=== PATIENT | male | born 1995 | race Caucasian/White ===

== ENCOUNTER 2019-12-08 10:04 | Emergency (ER) | payer OTHER, SELFPAY ==
--- NOTE | ~2019-12-08 | CT_ITS ---
EXAMINATION: CT abdomen pelvis w con INDICATION: Lower abdominal pain, nausea, constipation TECHNIQUE: Computed tomographic images of the abdomen and pelvis were obtained after the administrati on of 100 cc of Omnipaque 350 intravenous contrast. The dose-length product (DLP) was 1433.06 mGy-cm. Automated exposure control and iterative reconstruction technique were employed. COMPARISON: 12/08/2019 FINDINGS: The lung bases are clear. The heart size is normal. The liver, spleen, pancreas, gallbladde r, and adrenal glands are normal. The kidneys are unremarkable. No pathologically enlarged abdominal or pelvic lymph nodes are identified. There is no free intraperitoneal gas or evidence of bowel obstr uction. The appendix is normal. IMPRESSION: 1. No CT correlate for the patient's symptoms. Reviewed, dictated and finalized at location A.
[2019-12-08 10:15] VITALS: BP 156/89; PULSE 71; RESP 17; TEMP 36.6; O2SAT 100
[2019-12-08 10:43] LABS: Basophils Percent Auto 0.8 % (0.2-1.2); Eosinophils Absolute Auto 0.1 K/mm3 (0-0.3); Eosinophils Percent Auto 1.6 % (0-4.4); Hematocrit 47.4 % (42.0-52.0); Hemoglobin 16.3 g/dL (14.0-18.0); Immature Granulocyte Absolute 0.01 K/mm3 (0.00-0.031); Immature Granulocyte Percent A 0.2 % (0-0.5); Lymphocytes Absolute Auto 1.88 K/mm3 (0.9-3.2); Lymphocytes Percent Auto 37.6 % (18.3-44.2); Mean Corpuscular HGB Conc 34.4 g/dl (32-36); Mean Corpuscular Hemoglobin 29.6 pg (26-34); Mean Platelet Volume 9.8 fl (7.4-10.4); Monocytes Absolute Auto 0.4 K/mm3 (0.1-0.6); Monocytes Percent Auto 7.2 % (2.6-8.5); Neutrophils Absolute Auto 2.6 K/mm3 (1.3-6.7); Neutrophils Percent Auto 52.6 % (45.5-73.1); Platelet Count Result 331 k/mm3 (150-375); Red Blood Count 5.51 M/mm3 (4.6-6.20); Red Cell Distribution Width 12.3 % (11.5-14.5)
[2019-12-08 10:47] LABS: Alanine Aminotransferase 32 U/L (4-50); Albumin Level 4.9 g/dL (3.5-5.1); Alkaline Phosphatase 83 U/L (38-126); Aspartate Amino Transferase 31 U/L (17-59); Bilirubin,Total 0.6 mg/dL (0.2-1.3); Blood Urea Nitrogen 13 mg/dL (9-20); Calcium 9.3 mg/dL (8.4-10.2); Carbon Dioxide 26 mmol/L (22-30); Chloride 102 mmol/L (98-107); Estimated CRCL calculation 148 ml/min; Estimated Glomerular Filt Rate > 60; Glucose 98 mg/dL (75-110); Lipase 49 U/L (23-300); Potassium 3.9 mmol/L (3.4-5.0); Sodium 138 mmol/L (137-145)
[2019-12-08 11:11] VITALS: BP 128/70; PULSE 71; RESP 14; O2SAT 98
--- NOTE | 2019-12-08 11:22 | ED.ABDPAIN ---
HPI - Abdominal Pain General Chief Complaint: Abdominal Pain <Jayson Schmitt PA-C - Last Filed: 12/08/19 12:39> Stated Complaint: abd pain <JORGE Cotter Last Filed: 12/08/19 12:39> Time Seen by Provider: 12/08/19 10:14 <JORGE Cotter Last Filed: 12/08/19 12:39> Source: patient <Jayson Schmitt PA-C - Last Filed: 12/08/19 12:39> Mode of arrival: ambulatory <JORGE Cotter Last Filed: 12/08/19 12:39> Limitations: no limitations <JORGE Cotter Last Filed: 12/08/19 12:39> History of Present Illness HPI narrative: Patient is a 24-year-old male who presents with several days duration of generalized abdominal pain is a moderate aching pain throughout the abdomen patient has not taken anything for his symptoms presents per private vehicle denies vomiting diarrhea hematuria melena or urinary symptoms patient on arrival to emergency department is in the room in no distress pain is worse with activity and movement <Jayson Schmitt PA-C - Last Filed: 12/08/19 12:39> Related Data Home Medications: Home Medications Medication Instructions Recorded Confirmed hyoscyamine sulfate mg PO 12/08/19 <JORGE Cotter Last Filed: 12/08/19 12:39> Allergies/Adverse Reactions: Allergies Allergy/AdvReac Type Severity Reaction Status Date / Time No Known Allergies Allergy Verified 12/08/19 10:23 <Jayson Schmitt PA-C - Last Filed: 12/08/19 12:39> Review of Systems Review of Systems: All systems reviewed & are unremarkable except as noted in HPI and below <Jayson Schmitt PA-C - Last Filed: 12/08/19 12:39> PMFSH Social History Social History: Social History Gender identity (if verbalized by the patient): Male <JORGE Cotter Last Filed: 12/08/19 12:39> Exam Narrative: Exam Narrative: GENERAL: Well-appearing, well-nourished, and in no acute distress. HEAD: Normocephalic, atraumatic. EYES: PERRLA and EOMI. ENT: Nares clear, no rhinorrhea or epistaxis. Mucous membranes moist. Oropharynx without tonsillar hypertrophy exudate or other lesions. Bilateral TMs pearly valdez nonbulging NECK: Supple. No adenopathy or masses. No carotid bruits or JVD CHEST: Clear to auscultation. No respiratory distress. No wheezes rales or rhonchi HEART: Regular rate and rhythm. No murmur heard. Normal peripheral pulses. ABDOMEN: Soft, generalized tenderness with voluntary guarding, nondistended EXTREMITIES: Normal range of motion. No edema. SKIN: Warm, dry, no rash. NEURO: No focal deficits. Alert and oriented x3. Neurovascularly intact. Capillary refill less than 2 seconds PSYCH: Normal mood and affect. <JORGE Cotter Last Filed: 12/08/19 12:39> Course Course Emergency Course: Patient in the room in no distress felt appropriate for outpatient reevaluation pain could be secondary to his IBS <JORGE Cotter Last Filed: 12/08/19 12:39> Vital Signs Vital signs: Vital Signs Temperature 97.9 F 12/08/19 10:15 Pulse Rate 71 12/08/19 10:15 Respiratory Rate 17 12/08/19 10:15 Blood Pressure 156/89 H 12/08/19 10:15 Pulse Oximetry 100 12/08/19 10:15 Temperature 98 F 12/08/19 12:51 Pulse Rate 57 L 12/08/19 12:51 Respiratory Rate 16 12/08/19 12:51 Blood Pressure 124/67 12/08/19 12:51 Pulse Oximetry 100 12/08/19 12:51 <JORGE Cotter Last Filed: 12/08/19 12:39> Vital Signs Temperature 97.9 F 12/08/19 10:15 Pulse Rate 71 12/08/19 10:15 Respiratory Rate 17 12/08/19 10:15 Blood Pressure 156/89 H 12/08/19 10:15 Pulse Oximetry 100 12/08/19 10:15 Temperature 98 F 12/08/19 12:51 Pulse Rate 57 L 12/08/19 12:51 Respiratory Rate 16 12/08/19 12:51 Blood Pressure 124/67 12/08/19 12:51 Pulse Oximetry 100 12/08/19 12:51 <Diandra Valdivia MD - Last Filed: 12/07
--- NOTE | 2019-12-08 11:23 | PC.NURSE ---
Pt to CT scan via stretcher.
[2019-12-08 11:24] LABS: Add Urine Microscopic? YES; Appearance Urine Clear (Clear); Bilirubin Urine Negative (Negative); Blood Urine Negative (Negative); Color Urine Straw (Yellow); Glucose Urine UA Negative (Negative); Ketones Urine 1+ mg/dL (Negative); Leukocyte Esterase Ur Negative LEU/UL (Negative); Nitrate Urine Negative (Negative); Protein Urine Negative (Negative); Specific Grav Ur 1.013 (1.001-1.035); Urobilinogen Urine Negative mg/dL (<2.0); WBC Urine 0-3 /hpf
[2019-12-08] MEDS: FAMOTIDINE 20 MG/2 ML VIAL IV PUSH (11:57)
[2019-12-08] MEDS: SODIUM CHLORIDE 0.9% IV 1,000 ML 999 ML IV CONT (11:57)
[2019-12-08 12:51] VITALS: BP 124/67; PULSE 57; RESP 16; TEMP 36.6; O2SAT 100
== END 2019-12-08 12:52 | disposition home or self-care (01) ==
PROVIDERS: Emergency Provider Emergency Medicine; PCP Family Medicine
DX: R10.84 Generalized abdominal pain (principal)
CPT/HCPCS: 36415; 74177; 80053; 81001; 83690; 85025; 96365; 96375; 99284; J0131; J7030; Q9967

== ENCOUNTER 2020-07-23 09:00 | Emergency (ER) | payer OTHER, SELFPAY ==
[2020-07-23] VITALS (7 sets, daily range): BP systolic 116–150; BP diastolic 72–101; PULSE 79–95; RESP 13–18; TEMP 37; O2SAT 96–99
--- NOTE | ~2020-07-23 | XR_ITS ---
EXAMINATION: XR chest 2V EXAM DATE: 07/23/2020 09:33 INDICATION: Left-sided chest pain for 4 days. TECHNIQUE: Frontal and lateral projections of the chest obtained and reviewed. Comparison is made to prior examination from 05/02/2018. FINDINGS: The lungs are clear. There are no pleural effusions. The cardiomediastinal silhouette is within normal limits. There is no pneumothorax suspected. The bones and soft tissues are unremarkab le. IMPRESSION: Unremarkable chest x-ray exam. Reviewed, dictated and finalized at location A. E [employer]
--- NOTE | 2020-07-23 09:11 | ECG_ITS ---
Measurements Intervals [place] Rate: 87 P: 38 ME: 152 QRS: 36 QRSD: 97 T: 62 QT: 349 QTc: 422 Interpretive Statements SINUS RHYTHM NORMAL ECG Electronically Signed On 07-23-2020 11:28:19 MACHINE SET UP TECHNICIAN by Dewayne Copeland D.O.
[2020-07-23] MEDS: ASPIRIN 81 MG CHEWABLE TABLET 324 MG PO (09:22)
[2020-07-23 09:25] LABS: Basophils Absolute Auto 0.1 K/mm3 (0.0-0.1); Basophils Percent Auto 0.7 % (0.2-1.2); Eosinophils Absolute Auto 0.1 K/mm3 (0-0.3); Eosinophils Percent Auto 1.6 % (0-4.4); Immature Granulocyte Absolute 0.02 K/mm3 (0.00-0.031); Immature Granulocyte Percent A 0.3 % (0-0.5); Lymphocytes Absolute Auto 2.58 K/mm3 (0.9-3.2); Lymphocytes Percent Auto 38.4 % (18.3-44.2); Mean Corpuscular HGB Conc 34.7 g/dl (32-36); Mean Corpuscular Volume 86.4 fl (80-100); Mean Platelet Volume 9.4 fl (7.4-10.4); Monocytes Absolute Auto 0.5 K/mm3 (0.1-0.6); Monocytes Percent Auto 6.8 % (2.6-8.5); Neutrophils Absolute Auto 3.5 K/mm3 (1.3-6.7); Neutrophils Percent Auto 52.2 % (45.5-73.1); Platelet Count Result 347 k/mm3 (150-375); Red Blood Count 5.67 M/mm3 (4.6-6.20); Red Cell Distribution Width 12.5 % (11.5-14.5); White Blood Count 6.7 K/mm3 (4.5-10.0)
[2020-07-23 09:34] LABS: Prothrombin Time 13.3 Seconds (11.1-14.7)
[2020-07-23 09:35] LABS: Partial Thromboplastin Time 35.4 SECONDS (22.3-36.8)
[2020-07-23 09:36] LABS: Anion Gap 7 mmol/L (8-16); Blood Urea Nitrogen 11 mg/dL (9-20); Carbon Dioxide 33 mmol/L (22-30); Chloride 99 mmol/L (98-107); Estimated CRCL calculation 139 ml/min; Estimated Glomerular Filt Rate > 60; Glucose 101 mg/dL (75-110); Potassium 3.7 mmol/L (3.4-5.0); Sodium 139 mmol/L (137-145)
[2020-07-23 09:48] LABS: Troponin I < 0.012 ng/mL (0.000-0.034)
--- NOTE | 2020-07-23 10:22 | PC.NURSE ---
Called lab, Shaina, added on [phone]
[2020-07-23] MEDS: KETOROLAC 30 MG/ML VIAL (*BKC) IV PUSH (10:33)
[2020-07-23 10:39] LABS: D Dimer 0.27 ug/mL (<0.48)
--- NOTE | 2020-07-23 10:45 | ED.CHESTPAIN ---
HPI - Chest Pain General Chief Complaint: Chest Pain Stated Complaint: lt chest pain Time Seen by Provider: 07/23/20 09:54 Source: patient Mode of arrival: ambulatory Limitations: no limitations History of Present Illness HPI narrative: This patient is a 24 year old male who presents for evaluation of left chest pain. Patient states his pain started 4 days ago. He describes pain has intermittent tightness. He denies any exacerbating or alleviating factors. He has not taken anything for pain. He denies associated cough, shortness of breath, fever, chills, vomiting or dizziness. HE denies signs of dVT. He denies history PE or DVt. complaint: chest pain Onset (ago): day(s) (4) Timing of current episode: episodic Related Data Home Medications Medication Instructions Recorded Confirmed amitriptyline 25 mg PO HS 07/23/20 Allergies Allergy/AdvReac Type Severity Reaction Status Date / Time No Known Allergies Allergy Verified 07/23/20 09:15 Review of Systems Review of Systems: All systems reviewed & are unremarkable except as noted in HPI and below PMFSH Past Medical History Medical History (Updated 07/23/20 @ 13:11 by Kelle Camilo MD) Patient denies medical problems Surgical History Surgical History (Updated 07/23/20 @ 10:47 by Kelle Camilo MD) No pertinent past surgical history Social History Social History (Updated 07/23/20 @ 10:47 by Kelle Camilo MD) Tobacco type: e-cigarettes/vaping Gender identity (if verbalized by the patient): Male Exam Narrative: Exam Narrative: GENERAL: Well-appearing, well-nourished, and in no acute distress. HEAD: Normocephalic, atraumatic EYES: PERRLA and EOMI, conjunctiva clear without discharge THROAT:Mucous membranes moist, Oropharynx normal without erythema, exudate, peritonsillar swelling or fluctuance NECK: Supple, without lymphadenopathy or mass RESPIRATORY: No respiratory distress, Airway patent, Respirations non-labored, Clear to auscultation without rales, rhonchi or wheeze HEART: Regular rate and rhythm. No murmur heard. Normal peripheral pulses. ABDOMEN: Soft, nontender, nondistended, normal active bowel sounds. No masses. No rebound or guarding, No organomegaly. EXTREMITIES: No edema, normal strength with full range of motion. SKIN: Warm, dry, normal color without rash NEURO: Alert and oriented x3. CN 2-12 grossly intact. No focal deficits. PSYCH: Normal mood and affect. Course Reevaluation(s) Date: 07/23/20 Time: 13:08 Consultations Consultation #1: I Discussed case with Dr. Copeland patient with heart score of 2 . He is pain free now after nitro. He states patient can be discharged and follow up next week for stress test. patient is not exertional Date: 07/23/20 Time: 13:08 Vital Signs Vital signs: Vital Signs Temperature 98.6 F 07/23/20 09:09 Pulse Rate 95 07/23/20 09:09 Respiratory Rate 16 07/23/20 09:09 Blood Pressure 150/101 H 07/23/20 09:09 Pulse Oximetry 99 07/23/20 09:09 Temperature 98.6 F 07/23/20 11:03 Pulse Rate 88 07/23/20 13:21 Respiratory Rate 18 07/23/20 13:21 Blood Pressure 128/72 07/23/20 13:21 Pulse Oximetry 96 07/23/20 13:21 MDM - Chest Pain Lab Data Result diagrams: 07/23/20 09:14 07/23/20 09:14 Labs: Lab Results 07/23/20 07/23/20 07/23/20 Range/Units 09:13 09:14 09:14 WBC 6.7 (4.5-10.0) K/mm3 RBC 5.67 (4.6-6.20) M/mm3 Hgb 17.0 (14.0-18.0) g/dL Hct 49.0 (42.0-52.0) % MCV 86.4 (80-100) fl MCH 30.0 (26-34) pg MCHC 34.7 (32-36) g/dl RDW 12.5 (11.5-14.5) % Plt Count 347 (150-375) k/mm3 MPV 9.4 (7.4-10.4) fl Immature Gran % (Auto) 0.3 (0-0.5) % Neut % (Auto) 52.2 (45.5-73.1) % Lymph % (Auto) 38.4 (18.3-44.2) % [place] % (Auto) 6.8 (2.6-8.5) % Eos % (Auto) 1.6 (0-4.4) % Baso % (Auto) 0.7 (0.2-1.2) % Lymph # (Auto) 2.58 (0.9-3.2) K/mm3
[2020-07-23 12:43] LABS: Troponin I < 0.012 ng/mL (0.000-0.034)
[2020-07-23] MEDS: NITROGLYCERIN SL 0.4 MG TABLET SUBLINGUAL (12:51)
--- NOTE | 2020-07-23 12:52 | PC.NURSE ---
First dose nitroglycerin given SL rate pain 5/10. Pulse rate 75, respiratory rate 14, oxygen 99% on room air with BP 128/88.
--- NOTE | 2020-07-23 12:59 | PC.NURSE ---
Patient states after first dose of nitro pain is now 2/10. Second dose of nitro given at this time. BP 85, RR 20, oxygen 95% on room air with bp 131/79.
--- NOTE | 2020-07-23 13:06 | PC.NURSE ---
Patient reports chest pain is 0/10 at this time after second dose of nitro. Pulse 89, RR 16, pulse ox 95% on nadia air with a bp of 128/72.
== END 2020-07-23 13:23 | disposition home or self-care (01) ==
PROVIDERS: Emergency Provider General Practice; PCP Family Medicine
DX: R07.9 Chest pain, unspecified (principal); F17.290 Nicotine dependence, other tobacco product, uncomplicated
CPT/HCPCS: 36415; 71046; 80048; 84484; 85025; 85380; 85610; 85730; 93005; 96374; 99284; A9270; J1885

== ENCOUNTER 2020-07-27 10:09 | Outpatient (CLI) | payer OTHER, SELFPAY ==
[2020-07-27 10:45] LABS: Cholesterol 202 mg/dL (0-200); HDL Direct 40 mg/dL; Triglycerides 81 mg/dL (<150)
[2020-07-27 10:56] LABS: LDL Cholesterol Direct 145 mg/dL
== END 2020-07-27 10:10 | disposition home or self-care (01) ==
PROVIDERS: PCP Family Medicine; Visit Provider Internal Medicine Cardiovascular Disease
DX: I10 Essential (primary) hypertension (principal)
CPT/HCPCS: 36415; 80061

== ENCOUNTER 2020-12-06 09:36 | Emergency (ER) | payer SELFPAY ==
[2020-12-06 09:56] VITALS: BP 152/96; PULSE 86; RESP 14; TEMP 36.4; O2SAT 99
[2020-12-06 10:05] LABS: Basophils Absolute Auto 0.1 K/mm3 (0.0-0.1); Basophils Percent Auto 0.8 % (0.2-1.2); Eosinophils Absolute Auto 0.1 K/mm3 (0-0.3); Eosinophils Percent Auto 1.3 % (0-4.4); Hematocrit 48.8 % (42.0-52.0); Hemoglobin 16.8 g/dL (14.0-18.0); Immature Granulocyte Absolute 0.04 K/mm3 (0.00-0.031); Immature Granulocyte Percent A 0.4 % (0-0.5); Lymphocytes Absolute Auto 3.85 K/mm3 (0.9-3.2); Lymphocytes Percent Auto 36.2 % (18.3-44.2); Mean Corpuscular HGB Conc 34.4 g/dl (32-36); Mean Corpuscular Hemoglobin 29.1 pg (26-34); Mean Corpuscular Volume 84.6 fl (80-100); Mean Platelet Volume 9.3 fl (7.4-10.4); Monocytes Absolute Auto 0.9 K/mm3 (0.1-0.6); Monocytes Percent Auto 8.6 % (2.6-8.5); Neutrophils Absolute Auto 5.6 K/mm3 (1.3-6.7); Neutrophils Percent Auto 52.7 % (45.5-73.1); Platelet Count Result 431 k/mm3 (150-375); Red Blood Count 5.77 M/mm3 (4.6-6.20); Red Cell Distribution Width 12.5 % (11.5-14.5); White Blood Count 10.6 K/mm3 (4.5-10.0)
[2020-12-06 10:09] LABS: Add Urine Microscopic? YES; Appearance Urine Clear (Clear); Bilirubin Urine Negative (Negative); Blood Urine Negative (Negative); Color Urine Yellow (Yellow); Glucose Urine UA Negative (Negative); Ketones Urine Negative (Negative); Leukocyte Esterase Ur Negative LEU/UL (Negative); Mucus Urine Rare /lpf; Nitrate Urine Negative (Negative); Protein Urine 1+ mg/dL (Negative); RBC Urine 0-2 /hpf (0-2); Urobilinogen Urine Negative mg/dL (<2.0); WBC Urine 0-3 /hpf
[2020-12-06 10:15] LABS: Alanine Aminotransferase 39 U/L (4-50); Albumin Level 4.8 g/dL (3.5-5.1); Alkaline Phosphatase 82 U/L (38-126); Anion Gap 11 mmol/L (8-16); Aspartate Amino Transferase 52 U/L (17-59); Bilirubin,Total 0.7 mg/dL (0.2-1.3); Blood Urea Nitrogen 19 mg/dL (9-20); Calcium 9.7 mg/dL (8.4-10.2); Carbon Dioxide 36 mmol/L (22-30); Chloride 94 mmol/L (98-107); Estimated CRCL calculation 135 ml/min; Estimated Glomerular Filt Rate > 60; Glucose 101 mg/dL (75-110); Lipase 92 U/L (23-300); Potassium 2.9 mmol/L (3.4-5.0); Sodium 141 mmol/L (137-145)
[2020-12-06] MEDS: SODIUM CHLORIDE 0.9% IV 1,000 ML 999 ML IV CONT (10:17)
[2020-12-06] MEDS: ONDANSETRON INJ 4 MG/2 ML VIAL IV PUSH (10:17)
--- NOTE | 2020-12-06 10:52 | ED.NAVMDI ---
HPI - Nausea/Vomiting/Diarrhea General Chief complaint: Nausea/Vomiting/Diarrhea Stated complaint: N/V/D X2WKS Time Seen by Provider: 12/06/20 09:40 History of Present Illness HPI Narrative: Patient is a 25-year-old male who presents ER with nausea and vomiting for last 2 weeks. Originally he had had a sinus infection was started on Augmentin. He is at the end of taking his medication. Today he was driving his car and he vomited on himself. No fevers or chills or sweats. Intermittent discomfort in his right lower abdomen. Makes him feel like he needs to defecate. He is having no urinary frequency or urgency. He reports intermittent diarrhea related to his IBS. No blood in his vomit or stool. Related Data Home Medications Medication Instructions Recorded Confirmed amitriptyline 25 mg PO HS 07/23/20 07/27/20 Allergies Allergy/AdvReac Type Severity Reaction Status Date / Time No Known Allergies Allergy Verified 07/27/20 09:45 Review of Systems Review of Systems: All systems reviewed & are unremarkable except as noted in HPI and below Constitutional: Constitutional: Denies chills, Denies fever(s) and Denies weakness ENT: Reports nasal congestion and Denies sore throat Gastrointestinal: Gastrointestinal: Reports abdominal pain, Reports diarrhea, Reports nausea and Reports vomiting Genitourinary: Genitourinary: Denies hematuria, Denies dysuria and Denies urinary frequency PMFSH Past Medical History Medical History (Updated 12/06/20 @ 12:00 by Bernardo Panda MD) IBS (irritable colon syndrome) Surgical History Surgical History (Updated 07/23/20 @ 10:47 by Kelle Camilo MD) No pertinent past surgical history Social History Social History (Updated 07/23/20 @ 10:47 by Kelle Camilo MD) Smoking status: Current every day smoker Tobacco type: e-cigarettes/vaping Gender identity (if verbalized by the patient): Male Exam Narrative: Exam Narrative: GENERAL: Well-appearing, well-nourished, and in no acute distress. HEAD: Normocephalic, atraumatic. CHEST: Clear to auscultation. No respiratory distress. HEART: Regular rate and rhythm. Normal peripheral pulses. ABDOMEN: Soft, nontender, no McBurney's point tenderness, nondistended. EXTREMITIES: Normal range of motion. No edema. SKIN: Warm, dry, no rash. NEURO: Alert and oriented x3. PSYCH: Normal mood and affect. Course Course Emergency Course: Feels improved with GI cocktail. Discharge home. Unremarkable evaluation. May have gastritis. Will start on PPI. Vital Signs Vital signs: Vital Signs Temperature 97.6 F 12/06/20 09:56 Pulse Rate 86 12/06/20 09:56 Respiratory Rate 14 12/06/20 09:56 Blood Pressure 152/96 H 12/06/20 09:56 Pulse Oximetry 99 12/06/20 09:56 Temperature 97.6 F 12/06/20 09:56 Pulse Rate 86 12/06/20 09:56 Respiratory Rate 14 12/06/20 09:56 Blood Pressure 152/96 H 12/06/20 09:56 Pulse Oximetry 99 12/06/20 09:56 MDM - Nausea/Vomiting/Diarrhea Lab Data Result diagrams: 12/06/20 09:53 12/06/20 09:52 Labs: Lab Results 12/06/20 12/06/20 12/06/20 Range/Units 09:52 09:53 09:53 WBC 10.6 H (4.5-10.0) K/mm3 RBC 5.77 (4.6-6.20) M/mm3 Hgb 16.8 (14.0-18.0) g/dL Hct 48.8 (42.0-52.0) % MCV 84.6 (80-100) fl MCH 29.1 (26-34) pg MCHC 34.4 (32-36) g/dl RDW 12.5 (11.5-14.5) % Plt Count 431 H (150-375) k/mm3 MPV 9.3 (7.4-10.4) fl Immature Gran % (Auto) 0.4 (0-0.5) % Neut % (Auto) 52.7 (45.5-73.1) % Lymph % (Auto) 36.2 (18.3-44.2) % [place] % (Auto) 8.6 H (2.6-8.5) % Eos % (Auto) 1.3 (0-4.4) % Baso % (Auto) 0.8 (0.2-1.2) % Lymph # (Auto) 3.85 H (0.9-3.2) K/mm3 [place] # (Auto) 0.9 H (0.1-0.6) K/mm3 Eos # (Auto) 0.1 (0-0.3) K/mm3 Baso # (Auto) 0.1 (0.0-0.1) K/mm3 Abs Immat Gran (auto) 0.04 H (0.00-0.031) K/mm3 Absolute Neuts (auto) 5.6 (1.3-6.7) K/mm3
[2020-12-06] MEDS: POTASSIUM CHLORIDE 20 MEQ TABLET 40 MEQ PO (10:55)
[2020-12-06 12:28] VITALS: BP 140/99; RESP 16
== END 2020-12-06 12:28 | disposition home or self-care (01) ==
PROVIDERS: Emergency Provider Emergency Medicine; PCP Family Medicine
DX: R11.2 Nausea with vomiting, unspecified (principal)
CPT/HCPCS: 36415; 80053; 81001; 83690; 85025; 96361; 96374; 99284; A9270; J2405; J7030

== ENCOUNTER 2021-03-24 09:58 | Emergency (ER) | payer SELFPAY ==
--- NOTE | ~2021-03-24 | XR_ITS ---
XR chest 2V DATE: 03/24/2021 10:19 INDICATION: Cough, fever, congestion. History of vaping. TECHNIQUE: PA and lateral views COMPARISON: 07/23/2020 PA and lateral chest FINDINGS: Normal heart size. No hilar or mediastinal enlargement. Minimal infiltrate or atelectasis is suggested in the right mid lung. The lungs otherwise appear kandice r. No pleural effusion or pulmonary vascular congestion or pneumothorax. Minimal dextroscoliosis of the thoracic spine. IMPRESSION: Minimal infiltrate or atelectasis is suggested in the right mid lung Reviewed, dictated and finalized at location B. IMPRESSION: Minimal infiltrate or atelectasis is suggested in the right mid tabatha g
[2021-03-24 10:05] VITALS: BP 155/97; PULSE 16; RESP 16; TEMP 37; O2SAT 98
[2021-03-24 10:46] VITALS: PULSE 92; RESP 19; O2SAT 95
--- NOTE | 2021-03-24 10:50 | ED.GENADULT ---
HPI - General Adult General Chief complaint: Upper Respiratory Infection Stated complaint: Cold symptoms Time Seen by Provider: 03/24/21 10:02 History of Present Illness HPI narrative: Patient is a 25-year-old male who presents ER with runny nose with sore throat and cough over the last 5 days. Reports he has been having daily fever until today. Cough is worsening and causes him pain so I thought he come to be evaluated. Has history of pneumonia annually. Reports him and his have both been tested for Covid which is negative. No alleviating factors. He has been using Flonase and Mucinex D without relief. Related Data Home Medications Medication Instructions Recorded Confirmed amitriptyline 25 mg PO HS 07/23/20 07/27/20 hydrochlorothiazide 25 mg PO DAILY 03/24/21 Allergies Allergy/AdvReac Type Severity Reaction Status Date / Time amoxicillin [From Augmentin] AdvReac Nausea and Verified 03/24/21 10:08 Vomiting clavulanic acid AdvReac Nausea and Verified 03/24/21 10:08 [From Augmentin] Vomiting Review of Systems Review of Systems: All systems reviewed & are unremarkable except as noted in HPI and below Constitutional: Constitutional: Denies chills, Reports fatigue and Reports fever(s) ENT: Reports nasal congestion and Reports sore throat Respiratory: Respiratory: Reports chest congestion, Reports cough, Denies dyspnea and Denies wheezing Gastrointestinal: Gastrointestinal: Denies abdominal pain, Denies nausea and Denies vomiting PMFSH Past Medical History Medical History (Updated 03/24/21 @ 10:54 by Bernardo Panda MD) IBS (irritable colon syndrome) Surgical History Surgical History (Updated 07/23/20 @ 10:47 by Kelle Camilo MD) No pertinent past surgical history Social History Social History (Updated 07/23/20 @ 10:47 by Kelle Camilo MD) Smoking status: Current every day smoker Tobacco type: e-cigarettes/vaping Gender identity (if verbalized by the patient): Male Exam Narrative: GENERAL: Well-appearing, well-nourished, and in no acute distress. HEAD: Normocephalic, atraumatic. CHEST: Clear to auscultation. No respiratory distress. HEART: Regular rate and rhythm. Normal peripheral pulses. EXTREMITIES: Normal range of motion. No edema. SKIN: Warm, dry, no rash. NEURO: Alert and oriented x3. PSYCH: Normal mood and affect. Course Course Emergency Course: Patient informed results. Discharge with [facility]. Vital Signs Vital signs: Vital Signs Temperature 98.6 F 03/24/21 10:05 Pulse Rate 16 L 03/24/21 10:05 Respiratory Rate 16 03/24/21 10:05 Blood Pressure 155/97 H 03/24/21 10:05 Pulse Oximetry 98 03/24/21 10:05 Temperature 98.6 F 03/24/21 10:05 Pulse Rate 16 L 03/24/21 10:05 Respiratory Rate 16 03/24/21 10:05 Blood Pressure 155/97 H 03/24/21 10:05 Pulse Oximetry 98 03/24/21 10:05 Medical Decision Making Vital Signs Vital Signs: Vital Signs Temperature 98.6 F 03/24/21 10:05 Pulse Rate 16 L 03/24/21 10:05 Respiratory Rate 16 03/24/21 10:05 Blood Pressure 155/97 H 03/24/21 10:05 Pulse Oximetry 98 03/24/21 10:05 Temperature 98.6 F 03/24/21 10:05 Pulse Rate 16 L 03/24/21 10:05 Respiratory Rate 16 03/24/21 10:05 Blood Pressure 155/97 H 03/24/21 10:05 Pulse Oximetry 98 03/24/21 10:05 Imaging Data Radiologist's impression: ITS Impressions Chest X-Ray 03/24/21 10:20 IMPRESSION: Minimal infiltrate or atelectasis is suggested in the right mid lung Discharge Plan Discharge Clinical Impression: Community acquired pneumonia Patient Disposition: Home, Self-Care Condition: Stable Instructions: Antibiotic Form, Community Acquired Pneumonia (ED) Additional Instructions: Return to the ER if you cannot breathe, you cannot keep down food or water, you lose consciousness, you have additional concerns. Prescriptions: New azithromycin 250 mg tablet See
[2021-03-24 11:10] VITALS: PULSE 80; RESP 17; O2SAT 97
[2021-03-24 11:15] VITALS: PULSE 80; RESP 19; O2SAT 96
[2021-03-24 11:22] VITALS: BP 135/98; PULSE 81; RESP 18; O2SAT 96
== END 2021-03-24 11:22 | disposition home or self-care (01) ==
PROVIDERS: Emergency Provider Emergency Medicine; PCP Family Medicine
DX: J18.9 Pneumonia, unspecified organism (principal); K58.9 Irritable bowel syndrome, unspecified; F17.290 Nicotine dependence, other tobacco product, uncomplicated
CPT/HCPCS: 71046; 99283

== ENCOUNTER 2021-07-20 17:42 | Emergency (ER) | payer BC, SELFPAY ==
--- NOTE | ~2021-07-20 | XR_ITS ---
XR hip RT min 2V DATE: 07/20/2021 18:09 INDICATION: Anterior right hip pain TECHNIQUE: AP, lateral, crosstable lateral views of right hip COMPARISON: None FINDINGS: No fracture or dislocation, avascular necrosis or bone destruction. Pubic symphysis, right sacral iliac joint right hip joint are intact. IMPRESSION: Negative Reviewed, dictated and finalized at location A. CTOR PHONE IMPRESSION: Negative
[2021-07-20 17:49] VITALS: BP 141/77; PULSE 82; RESP 16; TEMP 36.8; O2SAT 99
--- NOTE | 2021-07-20 17:51 | ED.LOWEXIN ---
HPI - Extremity Injury (Lower) General Chief Complaint: Extremity Injury, Lower Stated Complaint: Right Hip Pain Time Seen by Provider: 07/20/21 17:51 Source: patient and RN notes reviewed History of Present Illness HPI Narrative: Patient is a 25-year-old male who presents the urgent care with complaints of right posterior and anterior hip pain. Patient states that it started on Sunday after he had been lifting a lot of furniture at work on Sunday. Patient states that the lifting of furniture is not anything out of the ordinary. States that he does have degenerative disc disease in his lower back which has caused some issues in the past. Patient states that he is try taking his 800 mg ibuprofen, Aleve, Tylenol and aspirin without much relief. Patient denies of any history of sciatica. Denies of any trauma, fall or injury. No other acute complaints. No acute distress noted. Patient aware of the plan of care. Some parts of this dictation were generated by voice recognition software and may contain typographical and/or grammatical inaccuracies. Related Data Home Medications Medication Instructions Recorded Confirmed amitriptyline 25 mg PO HS 07/23/20 07/20/21 hydrochlorothiazide 25 mg PO DAILY 03/24/21 07/20/21 Allergies Allergy/AdvReac Type Severity Reaction Status Date / Time amoxicillin [From Augmentin] AdvReac Nausea and Verified 07/20/21 17:59 Vomiting clavulanic acid AdvReac Nausea and Verified 07/20/21 17:59 [From Augmentin] Vomiting Review of Systems Review of Systems: CONSTITUTIONAL: Denies fever, chills, or sweats. EYES: Denies visual changes, redness, or discharge. ENT: Denies rhinorrhea, congestion, sore throat, or otalgia. CARDIOVASCULAR: Denies chest pain, palpitations, or edema. RESPIRATORY: Denies cough or dyspnea. GASTROINTESTINAL: Denies abdominal pain, nausea, vomiting, or diarrhea. GENITOURINARY: Denies dysuria or hematuria. SKIN: Denies rash or itching. MUSCULOSKELETAL: Reports of right hip pain NEUROLOGIC: Denies headache, numbness, or weakness. All other systems reviewed are negative, except as documented in HPI. [facility] Past Medical History Medical History (Updated 07/20/21 @ 18:34 by EMERSON Minor) IBS (irritable colon syndrome) Surgical History Surgical History (System 07/06/21 @ 15:26 by Rachid Johnson) No pertinent past surgical history Social History Social History (System 07/06/21 @ 15:26 by Rachid Johnson) Smoking status: Current every day smoker Tobacco type: e-cigarettes/vaping Gender identity (if verbalized by the patient): Male Comments At the time of my signature, I reviewed and agree with the nursing past medical, surgical, social, and family history. There is no relevant family history pertinent to the patient complaint. Exam Narrative: GENERAL: This is a well-nourished, well-developed patient, in no apparent distress. HEAD: normocephalic, atraumatic. EYES: PERRL. Sclera clear/white. Vision is grossly intact. EARS: External ears normal, auditory canals clear and without drainage, TMs normal without perforation. Hearing grossly intact. NOSE: External nose normal with no obvious nasal discharge, nares without redness, no rhinorrhea. THROAT: Mucous membranes moist NECK: Neck supple CARDIOVASCULAR: Regular rate and rhythm without murmurs, gallops, or rubs. RESPIRATORY: Clear to auscultation. Breath sounds equal bilaterally. No wheezes, rales, or rhonchi. SKIN: warm, intact with no suspicious lesions or rash, good texture and turgor. NEURO: awake, alert, and oriented to person, place and time. There were no obvious focal neurologic abnormalities. EXTREMITIES: No clubbing, cyanosis, or edema. There is a positive strong right pedal pulse with capillary refill less than 2 seconds. Positive anterior and posterior hip tenderness without any ecchymosis. BACK: Positive strong right SLE Course Course Level of Care: Express Care Visit Vital Signs Vit
[2021-07-20 18:01] VITALS: BP 141/77; PULSE 82; RESP 16; TEMP 36.8; O2SAT 99
== END 2021-07-20 18:38 | disposition home or self-care (01) ==
PROVIDERS: Emergency Provider Nurse Practitioner Family
DX: M54.31 Sciatica, right side (principal); F17.290 Nicotine dependence, other tobacco product, uncomplicated
CPT/HCPCS: 73502; 99213; G0463

== ENCOUNTER 2021-09-15 09:47 | Emergency (ER) | payer BC, SELFPAY ==
--- NOTE | ~2021-09-15 | XR_ITS ---
EXAMINATION: XR knee RT min 4V DATE: 09/15/2021 10:11 INDICATION: Anteromedial right knee pain post injury with palpable pop 4 days prior. TECHNIQUE: Anteroposterior, 2 oblique, sunrise and crosstable lateral views of the right knee were ob tained COMPARISON: None. FINDINGS: Alignment is normal. No fracture. No joint effusion/layering lipohemarthrosis. There are couple smal l sclerotic bone islands in the medial femoral condyle and at the medial tibial plateau. Soft tissues are unremarkable. IMPRESSION: 1. Negative right knee radiographs. Reviewed, dictated and finalized at location A.
[2021-09-15 09:53] VITALS: BP 131/79; PULSE 84; RESP 18; TEMP 37; O2SAT 98
--- NOTE | 2021-09-15 10:04 | ED.LOWEXIN ---
HPI - Extremity Injury (Lower) General Chief Complaint: Extremity Injury, Lower Stated Complaint: Right Knee Pain Time Seen by Provider: 09/15/21 10:04 Source: patient Mode of arrival: ambulatory Limitations: no limitations History of Present Illness HPI Narrative: 26-year-old male presents with pain to right knee for 4 to 5 days. States that he was walking up a hill and felt a pop to the right knee that caused him to fall to the ground. Since then has had pain, is walking with a cane. In 2010 patient dislocated right kneecap related to sports injury. Has not had any problems with right knee since then. Does not have a primary care physician for follow-up. All systems reviewed and negative except as noted above. Related Data Home Medications Medication Instructions Recorded Confirmed hydrochlorothiazide 25 mg PO DAILY 09/15/21 09/15/21 Allergies Allergy/AdvReac Type Severity Reaction Status Date / Time amoxicillin [From Augmentin] AdvReac Nausea and Verified 09/15/21 10:05 Vomiting clavulanic acid AdvReac Nausea and Verified 09/15/21 10:05 [From Augmentin] Vomiting Review of Systems Review of Systems: CONSTITUTIONAL: Denies fever, chills, or sweats. EYES: Denies visual changes, redness, or discharge. ENT: Denies rhinorrhea, congestion, sore throat, or otalgia. CARDIOVASCULAR: Denies chest pain, palpitations, or edema. RESPIRATORY: Denies cough or dyspnea. GASTROINTESTINAL: Denies abdominal pain, nausea, vomiting, or diarrhea. GENITOURINARY: Denies dysuria or hematuria. SKIN: Denies rash or itching. MUSCULOSKELETAL: Denies back pain or myalgia. Reports right knee pain. NEUROLOGIC: Denies headache, numbness, or weakness. PSYCHIATRIC: Denies anxiety or depression. All other systems reviewed are negative, except as documented in HPI. FORMERLY [facility], [facility] Past Medical History Medical History (Updated 09/15/21 @ 10:20 by Caterina Hubbard NP) IBS (irritable colon syndrome) Surgical History Surgical History (System 07/06/21 @ 15:26 by Rachid Johnson) No pertinent past surgical history Social History Social History (System 07/06/21 @ 15:26 by Rachid Johnson) Smoking status: Current every day smoker Tobacco type: e-cigarettes/vaping Gender identity (if verbalized by the patient): Male Comments At time of signature, agree with nursing past medical, surgical, social and family history. There is no relevant family history pertinent to the presenting complaint. Exam Narrative: GENERAL: This is a well-nourished, well-developed patient, in no apparent distress. HEAD: normocephalic, atraumatic. EYES: PERRL. Sclera clear/white. Vision is grossly intact. EARS: External ears normal NOSE: External nose normal THROAT: Mucous membranes moist NECK: Neck supple, non-tender without lymphadenopathy, masses or thyromegaly. CARDIOVASCULAR: Regular rate and rhythm without murmurs, gallops, or rubs. RESPIRATORY: Clear to auscultation. Breath sounds equal bilaterally. No wheezes, rales, or rhonchi. SKIN: warm, Dry, intact with no suspicious lesions or rash, good texture and turgor. NEURO: awake, alert, and oriented to person, place and time. There were no obvious focal neurologic abnormalities. EXTREMITIES: Tenderness to medial aspect and patellar tendon of right knee. There is no obvious swelling. Anterior drawer test is negative. No laxity to right knee. Course Course Level of Care: Express Care Visit Vital Signs Vital signs: Vital Signs Temperature 37.0 C 09/15/21 09:53 Pulse Rate 84 09/15/21 09:53 Respiratory Rate 18 09/15/21 09:53 Blood Pressure 131/79 09/15/21 09:53 Pulse Oximetry 98 09/15/21 09:53 Temperature 37.0 C 09/15/21 09:53 Pulse Rate 84 09/15/21 09:53 Respiratory Rate 18 09/15/21 09:53 Blood Pressure 131/79 09/15/21 09:53 Pulse Oximetry 98 09/15/21 09:53 Reviewed MDM - Extremity Injury (Lower) MDM Narrative Medical decision making narrative: Patient is
== END 2021-09-15 10:20 | disposition home or self-care (01) ==
PROVIDERS: Emergency Provider Nurse Practitioner Family
DX: S83.91XA Sprain of unspecified site of right knee, initial encounter (principal); X50.9XXA Other and unspecified overexertion or strenuous movements or postures, initial encounter; F17.200 Nicotine dependence, unspecified, uncomplicated
CPT/HCPCS: 73564; 99213; G0463

== ENCOUNTER 2021-10-19 10:02 | Outpatient (CLI) | payer BC, SELFPAY ==
[2021-10-19 18:53] LABS: Basophils Absolute Auto 0.1 K/mm3 (0.0-0.1); Basophils Percent Auto 1.2 % (0.2-1.2); Eosinophils Absolute Auto 0.1 K/mm3 (0-0.3); Eosinophils Percent Auto 1.9 % (0-4.4); Hemoglobin 15.5 g/dL (14.0-18.0); Immature Granulocyte Absolute 0.01 K/mm3 (0.00-0.031); Immature Granulocyte Percent A 0.2 % (0-0.5); Lymphocytes Absolute Auto 1.92 K/mm3 (0.9-3.2); Lymphocytes Percent Auto 32.4 % (18.3-44.2); Mean Corpuscular HGB Conc 34.4 g/dl (32-36); Mean Corpuscular Hemoglobin 30.4 pg (26-34); Mean Corpuscular Volume 88.2 fl (80-100); Mean Platelet Volume 9.7 fl (7.4-10.4); Monocytes Absolute Auto 0.4 K/mm3 (0.1-0.6); Monocytes Percent Auto 5.9 % (2.6-8.5); Neutrophils Absolute Auto 3.5 K/mm3 (1.3-6.7); Neutrophils Percent Auto 58.4 % (45.5-73.1); Platelet Count Result 371 k/mm3 (150-375); Red Cell Distribution Width 12.8 % (11.5-14.5); White Blood Count 5.9 K/mm3 (4.5-10.0)
[2021-10-19 19:23] LABS: Alanine Aminotransferase 37 U/L (4-50); Albumin Level 4.7 g/dL (3.5-5.1); Alkaline Phosphatase 87 U/L (38-126); Anion Gap 10 mmol/L (8-16); Aspartate Amino Transferase 32 U/L (17-59); Bilirubin,Total 0.2 mg/dL (0.2-1.3); Blood Urea Nitrogen 13 mg/dL (9-20); Calcium 9.4 mg/dL (8.4-10.2); Carbon Dioxide 24 mmol/L (22-30); Chloride 105 mmol/L (98-107); Cholesterol 192 mg/dL (0-200); Estimated Glomerular Filt Rate > 60; Glucose 102 mg/dL (65-110); HDL Direct 41 mg/dL; Potassium 4.2 mmol/L (3.4-5.0); Sodium 139 mmol/L (137-145); Triglycerides 75 mg/dL (<150)
[2021-10-19 19:30] LABS: Hemoglobin A1C 5.3 % (<5.7)
[2021-10-19 19:33] LABS: LDL Cholesterol Direct 131 mg/dL
== END 2021-10-19 10:03 | disposition home or self-care (01) ==
LOC: ANHBWCLAB 10:04
PROVIDERS: PCP Family Medicine; Visit Provider Family Medicine
DX: Z00.00 Encounter for general adult medical examination without abnormal findings (principal); E66.9 Obesity, unspecified; K58.9 Irritable bowel syndrome, unspecified; E87.6 Hypokalemia; R07.9 Chest pain, unspecified; I10 Essential (primary) hypertension
CPT/HCPCS: 36415; 80053; 80061; 83036; 84443; 85025

== ENCOUNTER 2022-01-18 09:04 | Outpatient (CLI) | payer BC, SELFPAY ==
--- NOTE | ~2022-01-18 | XR_ITS ---
XR knee RT min 4V 01/18/2022 09:24 Indication: Right knee pain Procedure: 4 views right knee Comparison: 09/15/2021 Findings: There is anatomic alignment. No joint space narrowing. No fracture or subluxation. No joint effusion. No soft tissue abnormality or foreign body. Impression: 1: No significant bone or joint abnormality. Reviewed, dictated and finalized at location A. Impression: 1: No significant bone or joint abnormality.
== END 2022-01-18 09:05 | disposition home or self-care (01) ==
LOC: ANHBWCIMG 09:05
PROVIDERS: PCP Family Medicine; Visit Provider Family Medicine
DX: M25.561 Pain in right knee (principal)
CPT/HCPCS: 73564

== ENCOUNTER 2022-05-17 14:01 | Emergency (ER) | payer SELFPAY ==
[2022-05-17 14:10] VITALS: BP 122/78; PULSE 88; RESP 20; TEMP 36.9; O2SAT 98
--- NOTE | 2022-05-17 17:20 | ED.URI ---
HPI - URI/Sore Throat General Chief Complaint: Upper Respiratory Infection Stated Complaint: Fever/Vomiting/Congestion Time Seen by Provider: 05/17/22 17:20 Source: patient, RN notes reviewed and old records reviewed Mode of arrival: ambulatory Limitations: no limitations History of Present Illness HPI Narrative: 26 year old male presents to express care with complaints of nausea vomiting, fevers,congestion, chills since Sunday. Patient has been take Tylenol Honey and hot tea for symptoms and also has been taking DayQuil. Patient has had known exposure to influenza from brother. Patient reports that he has had fevers up to 102F. He has not been COVID vaccinated or had flu shot. MD elicited complaint: cough, nasal congestion and other (vomiting) Treatments prior to arrival: acetaminophen, cold medicine and other (honey and hot tea) Related Data Allergies Allergy/AdvReac Type Severity Reaction Status Date / Time amoxicillin [From Augmentin] AdvReac Nausea and Verified 05/17/22 15:28 Vomiting clavulanic acid AdvReac Nausea and Verified 05/17/22 15:28 [From Augmentin] Vomiting Review of Systems Review of Systems: CONSTITUTIONAL: Reports malaise, chills, sweats, or fever. EYES: Denies visual changes, redness, or discharge. ENT: Reports rhinorrhea, congestion, sinus pain, no otalgia and sore throat. CARDIOVASCULAR: Denies chest pain, palpitations, or edema. RESPIRATORY: Reports cough.? Denies dyspnea. GASTROINTESTINAL: Denies abdominal pain, positive nausea, vomiting, no diarrhea SKIN: Denies rash or itching. MUSCULOSKELETAL:Reports myalgia. NEUROLOGIC: Denies headache. All systems reviewed & are unremarkable except as noted in HPI and below PMFSH Past Medical History Medical History (Updated 05/18/22 @ 00:00 by Background Daemon) IBS (irritable colon syndrome) Surgical History Surgical History No pertinent past surgical history Family History Family History Father Diabetes mellitus Hypertension Mother Diabetes mellitus Hypertension Grandparent Cancer Diabetes mellitus Hypertension Heart disease Cerebrovascular accident Grandparent Cancer Diabetes mellitus Hypertension Social History Social History Smoking status: Current every day smoker Tobacco type: e-cigarettes/vaping Alcohol intake: current Alcohol use details: Beer 2-6 Beers a month Gender identity (if verbalized by the patient): Male Comments At time of signature, agree with nursing past medical, surgical, social and family history. There is no relevant family history pertinent to the presenting complaint Exam Narrative: GENERAL: Well-appearing, well-nourished, and in no acute distress. HEAD: Normocephalic EYES: PERRLA, conjunctivae clear ENT: Nares clear, turbinates edematous and erythematous, clear to light yellow discharge. Mucous membranes moist. TM pearly valdez with dull light reflex bilaterally; no tragal tenderness. Oropharynx erythematous without lesions. Tonsils not enlarged and without exudate, no drooling, no hoarseness, no trismus, uvula midline. NECK: Supple. No lymphadenopathy CHEST: Clear to auscultation, breath sounds equal. No wheezing, rhonchi, rales, or stridor. No respiratory distress, speaks in full sentences.post nasal drainage, cough, SAO2 98% on room air HEART: Regular rate and rhythm. No murmur heard. SKIN: Warm, dry, no rash. NEURO: Alert and oriented x3. PSYCH: Normal mood and affect Course Course Emergency Course: Patient is aware of diagnosis, understands and agrees to treatment plan.? Anticipatory guidance given.? Patient agrees to follow-up as directed and is aware of reasons to seek care at the emergency department. Portions of this record may have been created with voice recognition so
== END 2022-05-17 17:54 | disposition home or self-care (01) ==
PROVIDERS: Emergency Provider Registered Nurse; PCP Family Medicine
DX: J10.1 Influenza due to other identified influenza virus with other respiratory manifestations (principal); F17.290 Nicotine dependence, other tobacco product, uncomplicated
CPT/HCPCS: 87804; 99213; G0463

== ENCOUNTER 2023-05-16 09:04 | Emergency (ER) | payer BC, SELFPAY ==
[2023-05-16 09:12] VITALS: BP 137/81; PULSE 78; RESP 18; TEMP 36.2; O2SAT 97
--- NOTE | 2023-05-16 09:29 | ED.URI ---
HPI - URI/Sore Throat General Chief Complaint: Upper Respiratory Infection Stated Complaint: sore throat/fever Time Seen by Provider: 05/16/23 09:15 Source: patient Mode of arrival: ambulatory Limitations: no limitations History of Present Illness HPI Narrative: Luis Felipe is a 27-year-old male patient presenting to the clinic today with complaints of sore throat fever that started around 3:00 yesterday afternoon. He reports his fever has been high as 102. No known exposure to anyone with COVID, flu, or strep. Does also report some nasal congestion. MD elicited complaint: fever, sore throat and nasal congestion Related Data Allergies Allergy/AdvReac Type Severity Reaction Status Date / Time clavulanic acid AdvReac Nausea and Verified 05/17/22 15:28 [From Augmentin] Vomiting Review of Systems Review of Systems: Pertinent positives per HPI. Patient denies any rash, headache, visual changes, dizziness, cough, shortness of breath, chest pain, palpitations, nausea, vomiting, diarrhea, constipation, abdominal pain, or any urinary issues. PMFSH Past Medical History Medical History IBS (irritable colon syndrome) Surgical History Surgical History No pertinent past surgical history Family History Family History Father Diabetes mellitus Hypertension Mother Diabetes mellitus Hypertension Grandparent Cancer Diabetes mellitus Hypertension Heart disease Cerebrovascular accident Grandparent Cancer Diabetes mellitus Hypertension Social History Social History Smoking status: Current every day smoker Tobacco type: e-cigarettes/vaping Alcohol intake: current Alcohol use details: Beer 2-6 Beers a month Gender identity (if verbalized by the patient): Male Comments At the time of my signature, I reviewed and agree with the nursing past medical, surgical, social, and family history. There is no relevant family history pertinent to the patient complaint. Exam Narrative: General: Well-developed, well nourished, in no apparent distress Head: Normocephalic, atraumatic Eyes: Pupils equally round and reactive to light bilaterally, EOM intact, sclera and conjunctive clear, no discharge, lids normal Ears: TMs intact and clear, ear canals clear, no drainage, grossly hearing normal. Nose: Nares patent, clear discharge, no inflammation, no sinus tenderness. Mouth: Oral pharynx red with bilateral tonsillar enlargement without lesions or masses, good dentition, MMM. Neck: Supple, trachea midline, enlargement of anterior cervical nodes, no thyroid masses or goiter palpable. Cardio: Regular rate and rhythm, s1 and s2 normal, no murmur appreciated. Resp: Clear to auscultation bilaterally, no rhonchi, rales, wheezing or rubs Course Course Emergency Course: Portions of this record may have been created with voice recognition software. Level of Care: Express Care Visit Vital Signs Vital signs: Vital Signs Temperature 36.2 C L 05/16/23 09:12 Pulse Rate 78 05/16/23 09:12 Respiratory Rate 18 05/16/23 09:12 Blood Pressure 137/81 05/16/23 09:12 Pulse Oximetry 97 05/16/23 09:12 Oxygen Delivery Room Air 05/16/23 09:12 Temperature 36.2 C L 05/16/23 09:12 Pulse Rate 78 05/16/23 09:12 Respiratory Rate 18 05/16/23 09:12 Blood Pressure 137/81 05/16/23 09:12 Pulse Oximetry 97 05/16/23 09:12 Oxygen Delivery Room Air 05/16/23 09:12 Vital signs reviewed MDM - URI/Sore Throat MDM Narrative Medical decision making narrative: At the time of visit patient is resting comfortably on the exam table. Strep test was positive in the clinic today. Patient is nontoxic appearing. Amoxicillin liquid prescription was sent over per patient's req
== END 2023-05-16 09:32 | disposition home or self-care (01) ==
PROVIDERS: Emergency Provider Nurse Practitioner Family; PCP Family Medicine
DX: J02.0 Streptococcal pharyngitis (principal); F17.290 Nicotine dependence, other tobacco product, uncomplicated
CPT/HCPCS: 87880; 99213; G0463

== ENCOUNTER 2023-06-15 09:25 | Emergency (ER) | payer BC, SELFPAY ==
[2023-06-15 09:35] VITALS: BP 132/81; PULSE 90; RESP 18; TEMP 36.9; O2SAT 97
--- NOTE | 2023-06-15 10:01 | ED.GENADULT ---
HPI - General Adult General Chief complaint: Upper Respiratory Infection Stated complaint: Sore Throat Source: patient, RN notes reviewed and old records reviewed Mode of arrival: ambulatory Limitations: no limitations History of Present Illness HPI narrative: 27-year-old male presents to [facility] with complaint of sore throat, headache this started 2 days ago. Patient denies any other complaints MD complaint: sore throat Onset (ago): day(s) (2) Related Data Allergies Allergy/AdvReac Type Severity Reaction Status Date / Time clavulanic acid AdvReac Nausea and Verified 05/17/22 15:28 [From Augmentin] Vomiting Review of Systems Constitutional: Constitutional: Reports no additional constitutional complaints, Denies body ache(s), Denies chills, Denies fatigue, Denies fever(s) and Reports headache(s) Eyes: Eyes: Reports no additional eye complaints and Denies blurry vision ENT: Reports system reviewed and no additional complaints, except as documented, Denies vertigo, Denies dizziness, Denies ear discharge, Denies otalgia, Denies facial pain, Denies headache(s), Denies nasal congestion, Denies nasal discharge, Denies sinus pain, Denies sinus pressure and Reports sore throat Cardiovascular: Cardiovascular: Reports no additional cardiovascular complaints, Denies chest pain, Denies chest pain at rest, Denies rapid heart rate and Denies dyspnea Respiratory: Respiratory: Reports no additional respiratory complaints, Denies chest congestion, Denies cough, Denies pain on inspiration, Denies pain with cough and Denies dyspnea Gastrointestinal: Gastrointestinal: Denies abdominal pain, Denies diarrhea, Denies nausea and Denies vomiting Integumentary/Breasts: Skin/Breast: Denies rash Neurologic: Reports system reviewed and no additional complaints, except as documented, Denies vertigo, Denies dizziness and Denies headache(s) Endocrine: Endocrine: Denies fatigue PMF Past Medical History Medical History IBS (irritable colon syndrome) Surgical History Surgical History No pertinent past surgical history Family History Family History Father Diabetes mellitus Hypertension Mother Diabetes mellitus Hypertension Grandparent Cancer Diabetes mellitus Hypertension Heart disease Cerebrovascular accident Grandparent Cancer Diabetes mellitus Hypertension Social History Social History Smoking status: Current every day smoker Tobacco type: e-cigarettes/vaping Alcohol intake: current Alcohol use details: Beer 2-6 Beers a month Gender identity (if verbalized by the patient): Male Comments At the time of my signature, I reviewed and agree with the nursing past medical, surgical, social, and family history. There is no relevant family history pertinent to the patient complaint. Exam Const: General: cooperative, healthy appearing, no acute distress and well nourished Nutritional Appearance: well nourished Orientation/consciousness: patient oriented x3 Limitations: no limitations HENMT: Head: normal to inspection and normocephalic Ears: external ears normal, TM's normal bilaterally, mastoids normal and Abnormal EAC present Face/Nose/Sinus: normal facial exam Face and sinus: normal facial exam Mouth: Yes Normal oral and palatal mucosa present, Yes oropharynx normal and Yes moist mucous membranes Throat: tonsils normal, uvula midline and no uvular edema Other: mild post oropharynx erythema Eyes: General: appearance normal, both eyes and all related structures Sclera: sclerae normal Pupils: Equal, round and reactive pupils present Resp: Effort & Inspection: normal respiratory effort, able to speak in complete sentences, no audible wheezes, no cough, no respiratory distress a
== END 2023-06-15 10:08 | disposition home or self-care (01) ==
PROVIDERS: Emergency Provider Registered Nurse; PCP Family Medicine
DX: J02.8 Acute pharyngitis due to other specified organisms (principal); F17.290 Nicotine dependence, other tobacco product, uncomplicated
CPT/HCPCS: 87081; 87880; 99213; G0463

== ENCOUNTER 2023-08-13 15:32 | Emergency (ER) | payer BC, SELFPAY ==
[2023-08-13 15:42] VITALS: BP 143/86; PULSE 95; RESP 16; TEMP 36.9; O2SAT 97
--- NOTE | 2023-08-13 16:03 | ED.URI ---
HPI - URI/Sore Throat General Chief Complaint: Upper Respiratory Infection Stated Complaint: Congestion/Chest Congestion Time Seen by Provider: 08/13/23 16:03 Source: patient and RN notes reviewed Mode of arrival: ambulatory Limitations: no limitations History of Present Illness HPI Narrative: 27-year-old male presented for complaint of nasal congestion, cough, chest congestion and headache worsening over the past week. Patient denies shortness of breath, wheezing, nausea, vomiting, diarrhea, fevers or chills. Has not taken anything for symptoms today. He endorses 3-year-old tested positive for the flu. Patient vapes. MD elicited complaint: cough Related Data Allergies Allergy/AdvReac Type Severity Reaction Status Date / Time clavulanic acid AdvReac Nausea and Verified 05/17/22 15:28 [From Augmentin] Vomiting Review of Systems Review of Systems: CONSTITUTIONAL: Endorses malaise, denies chills, sweats, fever EYES: Denies visual changes, redness, or discharge ENT: Reports rhinorrhea, congestion, denies sinus pain, otalgia, sore throat CARDIOVASCULAR: Denies chest pain, palpitations, edema RESPIRATORY: Reports cough, post nasal drainage. Denies dyspnea GASTROINTESTINAL: Denies abdominal pain, nausea, vomiting, diarrhea SKIN: Denies rash or itching MUSCULOSKELETAL: Denies myalgia NEUROLOGIC: Denies headache PMFSH Past Medical History Medical History IBS (irritable colon syndrome) Surgical History Surgical History No pertinent past surgical history Family History Family History Father Diabetes mellitus Hypertension Mother Diabetes mellitus Hypertension Grandparent Cancer Diabetes mellitus Hypertension Heart disease Cerebrovascular accident Grandparent Cancer Diabetes mellitus Hypertension Social History Social History Smoking status: Current every day smoker Tobacco type: e-cigarettes/vaping Alcohol intake: current Alcohol use details: Beer 2-6 Beers a month Gender identity (if verbalized by the patient): Male Exam Narrative: GENERAL: mildly Ill-appearing, nontoxic no acute distress. EYES: PERRLA, conjunctivae clear ENT: Mucous membranes moist. Left TM pearly valdez with dull light reflex; Right TM erythematous, bulging and intact, canal not erythematous. No drainage. no tragal tenderness. Oropharynx not erythematous without lesions or exudate, no drooling, no hoarseness, no trismus, uvula midline. No tripod positioning, muffled voice, soft palate or pharyngeal wall bulging NECK: Supple. No lymphadenopathy CHEST: Clear to auscultation, breath sounds equal. No wheezing, rhonchi, rales, or stridor. No respiratory distress, speaks in full sentences. HEART: Regular rate and rhythm. No murmur heard. SKIN: Warm, dry, no rash. NEURO: Alert and oriented x3. PSYCH: Normal mood and affect Course Course Emergency Course: Patient is aware of diagnosis, understands and agrees to treatment plan. Anticipatory guidance given. Patient agrees to follow-up as directed and is aware of reasons to seek care at the emergency department. Portions of this record may have been created with voice recognition software Level of Care: Express Care Visit Vital Signs Vital signs: Vital Signs Temperature 98.5 F 08/13/23 15:42 Pulse Rate 95 08/13/23 15:42 Respiratory Rate 16 08/13/23 15:42 Blood Pressure 143/86 H 08/13/23 15:42 Pulse Oximetry 97 08/13/23 15:42 Oxygen Delivery Room Air 08/13/23 15:42 Temperature 98.5 F 08/13/23 15:42 Pulse Rate 95 08/13/23 15:42 Respiratory Rate 16 08/13/23 15:42 Blood Pressure 143/86 H 08/13/23 15:42 Pulse Oximetry 97 08/13/23 15:42 Oxygen Delivery Room Air 08/13/23 15:42 reviewed MDM - U
== END 2023-08-13 16:11 | disposition home or self-care (01) ==
PROVIDERS: Emergency Provider Nurse Practitioner Family; PCP Family Medicine
DX: H66.91 Otitis media, unspecified, right ear (principal); J40 Bronchitis, not specified as acute or chronic; Z20.822 Contact with and (suspected) exposure to COVID-19; F17.290 Nicotine dependence, other tobacco product, uncomplicated
CPT/HCPCS: 87426; 87804; 99213; G0463

== ENCOUNTER 2023-09-24 09:28 | Emergency (ER) | payer BC, SELFPAY ==
--- NOTE | ~2023-09-24 | XR_ITS ---
EXAMINATION: XR hip LT min 2V DATE: 09/24/2023 10:36 INDICATION: Left hip injury and pain. TECHNIQUE: 2 views of left hip were obtained. COMPARISON: None. FINDINGS: Bone alignment is normal. No fracture. There is decreased femoral head/neck offset, which m ay be seen with femoral acetabular impingement. Left hip joint space is normal. IMPRESSION: 1. No fracture. Reviewed, dictated and finalized at location A. IMPRESSION: 1. No fracture.
--- NOTE | ~2023-09-24 | XR_ITS ---
EXAMINATION: XR shoulder LT min 2V DATE: 09/24/2023 10:37 INDICATION: Left shoulder injury and pain. TECHNIQUE: 4 views of left shoulder were obtained. COMPARISON: None. FINDINGS: Bone alignment is normal. No fracture. Joint spaces are normal. IMPRESSION: 1. Normal left shoulder. Reviewed, dictated and finalized at location A. IMPRESSION: 1. Normal left shoulder.
[2023-09-24 09:34] VITALS: BP 148/89; PULSE 78; RESP 20; TEMP 36.5; O2SAT 100
--- NOTE | 2023-09-24 09:39 | ED.FALL ---
HPI - Fall General Chief Complaint: Fall Stated Complaint: left hip and shoulder injury Time Seen by Provider: 09/24/23 09:41 Source: patient, RN notes reviewed and old records reviewed Mode of arrival: ambulatory Limitations: no limitations History of Present Illness HPI Narrative: 28 year old male who [facility] with complaints of moving a refrigerator 2 days ago and fell.He reports that he is experiencing pain to the top of his left shoulder and to the posterior aspect of his left hip since fall. Patient reports that he has been taking Tylenol and Ibuprofen for his discomfort. Patient reports that his shoulder is very painful rates it as 7/10 and is unable to fully extend and flex his arm. complaint: fall Onset (ago): day(s) (2) Fall from: standing Loss of consciousness: none Symptoms prior to fall: none Location of injury: other (top of left shoulder and posterior left hip area) Location of injury - extremities: Left: shoulder Severity scale (1-10): 7 Quality: aching Related Data Allergies Allergy/AdvReac Type Severity Reaction Status Date / Time clavulanic acid AdvReac Nausea and Verified 05/17/22 15:28 [From Augmentin] Vomiting Review of Systems Review of Systems: CONSTITUTIONAL: Denies fever, chills, or sweats. EYES: Denies visual changes, redness, or discharge. ENT: Denies rhinorrhea, congestion, sore throat, or otalgia. CARDIOVASCULAR: Denies chest pain, palpitations, or edema. RESPIRATORY: Denies cough or dyspnea. GASTROINTESTINAL: Denies abdominal pain, nausea, vomiting, or diarrhea. GENITOURINARY: Denies dysuria or hematuria. SKIN: Denies rash or itching. MUSCULOSKELETAL: Denies acute back pain, Reports left shoulder and left posterior hip pain, or myalgia. NEUROLOGIC: Denies headache, numbness, or weakness. PSYCHIATRIC: Denies anxiety or depression. All systems reviewed & are unremarkable except as noted in HPI and below PMFSH Past Medical History Medical History DDD (degenerative disc disease) Fracture of left upper extremity Fracture of right ankle IBS (irritable colon syndrome) Pneumonia Surgical History Surgical History No pertinent past surgical history Family History Family History Father Diabetes mellitus Hypertension Mother Diabetes mellitus Hypertension Grandparent Cancer Diabetes mellitus Hypertension Heart disease Cerebrovascular accident Grandparent Cancer Diabetes mellitus Hypertension Social History Social History Smoking status: Current every day smoker Tobacco type: e-cigarettes/vaping Alcohol intake: current Alcohol use details: Beer 2-6 Beers a month Substance use type: does not use Living arrangements: with family Gender identity (if verbalized by the patient): Male Comments At time of signature, agree with nursing past medical, surgical, social and family history. There is no relevant family history pertinent to the presenting complaint Exam Narrative: GENERAL: Well-appearing, well-nourished, and in no acute distress. HEAD: Normocephalic, atraumatic. EYES: PERRLA and EOMI. ENT: Nares clear, no rhinorrhea or epistaxis. Mucous membranes moist.TM's normal throat pink with no swelling or pain NECK: Supple. no lymphadenopathy CHEST: Clear to auscultation. No respiratory distress.SAO2 100% on room air HEART: Regular rate and rhythm. No murmur heard. Normal peripheral pulses. ABDOMEN: Soft, nontender, nondistended, normal active bowel sounds. EXTREMITIES: Normal range of motion. No edema.Exception noted to left shoulder with pain and some limited flexion and extension of left arm due to pain, strong pulses left arm,denies any tingling or numbness to left upper extremity. Reports some pain to posterior hip reg
== END 2023-09-24 11:19 | disposition home or self-care (01) ==
PROVIDERS: Emergency Provider Registered Nurse; PCP Family Medicine
DX: S76.012A Strain of muscle, fascia and tendon of left hip, initial encounter (principal); S46.912A Strain of unspecified muscle, fascia and tendon at shoulder and upper arm level, left arm, initial encounter; W19.XXXA Unspecified fall, initial encounter; F17.290 Nicotine dependence, other tobacco product, uncomplicated
CPT/HCPCS: 73030; 73502; 99214; G0463

== ENCOUNTER 2023-10-17 09:19 | Emergency (ER) | payer BC, SELFPAY ==
--- NOTE | ~2023-10-17 | XR_ITS ---
EXAMINATION: XR chest 2V 10/17/2023 10:01 INDICATION: Chest pain PROCEDURE: 2 view chest COMPARISON: 03/24/2021 FINDINGS: The lungs are clear. The cardiomediastinal silhouette is within normal limits. There are no pleural effusions. There is no pneumothorax suspected. IMPRESSION: 1: NO ACUTE CARDIOPULMONARY DISEASE. Reviewed, dictated and finalized at location B.
[2023-10-17 09:21] VITALS: BP 161/87; PULSE 79; RESP 16; TEMP 36.6; O2SAT 99
--- NOTE | 2023-10-17 09:21 | ECG_ITS ---
SEE SCANNED COPY FOR CONFIRMED REPORT MTDD
[2023-10-17 09:41] LABS: Basophils Absolute Auto 0.1 K/mm3 (0.0-0.1); Basophils Percent Auto 0.8 % (0.2-1.2); Eosinophils Absolute Auto 0.1 K/mm3 (0-0.3); Eosinophils Percent Auto 1.3 % (0-4.4); Hematocrit 45.4 % (42.0-52.0); Hemoglobin 15.4 g/dL (14.0-18.0); Immature Granulocyte Absolute 0.02 K/mm3 (0.00-0.031); Immature Granulocyte Percent A 0.3 % (0-0.5); Lymphocytes Absolute Auto 1.77 K/mm3 (0.9-3.2); Lymphocytes Percent Auto 24.9 % (18.3-44.2); Mean Corpuscular HGB Conc 33.9 g/dl (32-36); Mean Corpuscular Hemoglobin 29.4 pg (26-34); Mean Corpuscular Volume 86.6 fl (80-100); Mean Platelet Volume 9.6 fl (7.4-10.4); Monocytes Absolute Auto 0.5 K/mm3 (0.1-0.6); Monocytes Percent Auto 7.2 % (2.6-8.5); Neutrophils Absolute Auto 4.7 K/mm3 (1.3-6.7); Neutrophils Percent Auto 65.5 % (45.5-73.1); Platelet Count Result 335 k/mm3 (150-375); Red Blood Count 5.24 M/mm3 (4.6-6.20); Red Cell Distribution Width 12.6 % (11.5-14.5); White Blood Count 7.1 K/mm3 (4.5-10.0)
[2023-10-17 09:53] LABS: Alanine Aminotransferase 37 U/L (6-50); Albumin Level 4.9 g/dL (3.5-5.1); Alkaline Phosphatase 75 U/L (38-126); Anion Gap 9 mmol/L (4-12); Aspartate Amino Transferase 34 U/L (17-59); Bilirubin,Total 0.5 mg/dL (0.2-1.3); Blood Urea Nitrogen 21 mg/dL (9-20); Calcium 9.6 mg/dL (8.4-10.2); Carbon Dioxide 25 mmol/L (22-30); Chloride 108 mmol/L (98-107); Estimated CRCL calculation 135 ml/min; Estimated Glomerular Filt Rate > 60; Glucose 108 mg/dL (65-110); Lipase 58 U/L (23-300); Sodium 142 mmol/L (137-145)
[2023-10-17 10:00] LABS: Partial Thromboplastin Time 34.2 Seconds (22.3-36.8); Prothrombin Time 13.2 Seconds (11.1-14.7)
[2023-10-17 10:04] LABS: Troponin I < 0.012 ng/mL (0.000-0.034)
[2023-10-17 12:14] VITALS: BP 141/86; PULSE 62; TEMP 36.4; O2SAT 100
--- NOTE | 2023-10-17 12:23 | ECG_ITS ---
SEE SCANNED COPY FOR CONFIRMED REPORT MTDD
[2023-10-17 12:53] LABS: Troponin I < 0.012 ng/mL (0.000-0.034)
[2023-10-17 13:18] VITALS: BP 130/93; PULSE 66; RESP 16; O2SAT 97
--- NOTE | 2023-10-17 14:06 | ED.CHESTPAIN ---
HPI - Chest Pain General Chief Complaint: Chest Pain Stated Complaint: cp Time Seen by Provider: 10/17/23 13:38 History of Present Illness HPI narrative: Patient is a 28-year-old male with prior history of hypertension, here with chest pain and high blood pressures. He notes that he previously was on blood pressure medications, had lost a significant amount of weight and was no longer hypertensive and this was discontinued several years ago. He believes he is on hydrochlorothiazide 25 mg. Over the last 4 days he has started feeling similar to how he had felt when he had high blood pressure in the past including a generally unwell feeling associated with some left-sided chest pain. He states that the chest pain has been mild, aching in nature, nonradiating. The pain is pretty much resolved since arrival to the emergency department. He has had blood pressure readings upwards of the high 160s at home and this prompted him to come in for evaluation. He has attempted to follow up with his primary care doctor but has had difficulty getting an appointment. He denies cough, congestion, fever, chills. No prior cardiac history. No history of PE or DVT. No recent travel, surgeries. No associated shortness of breath or leg swelling. Related Data Allergies Allergy/AdvReac Type Severity Reaction Status Date / Time clavulanic acid AdvReac Nausea and Verified 10/17/23 13:17 [From Augmentin] Vomiting Review of Systems Review of Systems: All systems reviewed & are unremarkable except as noted in HPI and below PMFSH Past Medical History Medical History DDD (degenerative disc disease) Fracture of left upper extremity Fracture of right ankle IBS (irritable colon syndrome) Pneumonia Surgical History Surgical History No pertinent past surgical history Family History Family History Father Diabetes mellitus Hypertension Mother Diabetes mellitus Hypertension Grandparent Cancer Diabetes mellitus Hypertension Heart disease Cerebrovascular accident Grandparent Cancer Diabetes mellitus Hypertension Social History Social History Smoking status: Current every day smoker Tobacco type: e-cigarettes/vaping Alcohol intake: current Alcohol use details: Beer 2-6 Beers a month Substance use type: does not use Living arrangements: with family Gender identity (if verbalized by the patient): Male Exam Narrative: GENERAL: Well-appearing, well-nourished, and in no acute distress. HEAD: Normocephalic, atraumatic. EYES: PERRLA and EOMI. ENT: Nares clear. Mucous membranes moist. NECK: Supple. CHEST: Clear to auscultation. No respiratory distress. HEART: Regular rate and rhythm. Normal peripheral pulses. ABDOMEN: Soft, nontender, nondistended. EXTREMITIES: Normal range of motion. No edema. No calf tenderness. SKIN: Warm, dry, no rash. NEURO: No focal deficits. Alert and oriented x3. PSYCH: Normal mood and affect. Course Course Emergency Course: Chart review performed. Patient here with HTN and chest pain x3 days. Triage vitals initially showed elevated blood pressure of 161/87, repeat was 130/93. Triage workup reviewed. CBC unremarkable. CMP grossly normal. Troponin negative x2. CXR negative. Patient seen evaluated, nontoxic appearing, alert, oriented, in no distress. Symptoms have pretty much resolved by my evaluation and he has had several normal range blood pressure readings here in the emergency department. Given his prolonged high blood pressures at home over the last handful of days will restart his home medication while he is awaiting follow-up with his primary care doctor. His heart score is 1 for history of high blood pressure, low risk chest pain, believe patient is stable
[2023-10-17 14:33] VITALS: BP 127/88; PULSE 64; RESP 20; O2SAT 98
[2023-10-17 15:03] VITALS: BP 120/92; PULSE 81; RESP 22; O2SAT 99
== END 2023-10-17 15:07 | disposition home or self-care (01) ==
PROVIDERS: Student in an Organized Health Care Education/Training Program; Emergency Provider Student in an Organized Health Care Education/Training Program; PCP Family Medicine
DX: R07.89 Other chest pain (principal); I10 Essential (primary) hypertension; K58.9 Irritable bowel syndrome, unspecified; F17.290 Nicotine dependence, other tobacco product, uncomplicated; Z87.01 Personal history of pneumonia (recurrent)
CPT/HCPCS: 36415; 71046; 80053; 83690; 84484; 85025; 85610; 85730; 93005; 99284

== ENCOUNTER 2023-11-30 09:18 | Emergency (ER) | payer BC, SELFPAY ==
[2023-11-30 09:23] VITALS: BP 128/82; PULSE 84; RESP 17; TEMP 36.3; O2SAT 99
--- NOTE | 2023-11-30 09:36 | ED.SKABFB ---
HPI - Skin/Abscess/Foreign Bdy General Chief complaint: Skin/Abscess/Foreign Body Stated complaint: poison levar Time Seen by Provider: 11/30/23 09:39 Source: patient Mode of arrival: ambulatory Limitations: no limitations History of Present Illness HPI narrative: 28 year old male who presents to [facility] care with complaints of poison levar rash to his eyes, around his mouth and in genital area with one small spot to his right upper arm for the past 2 days. Patient reports that he was cutting grass and was exposed to poison levar and has history of allergic response in the past. Patient reports that he has been taking Benadryl for the itching and also Claritin. Patient denies any difficulty with his breathing or with swallowing SAO2 99% on room air with respirations even and non labored.. MD complaint: other (Poison levar) Onset (ago): day(s) (2) Severity scale (1-10): 4 Quality: pruritic Associated symptoms: itching and other (rash) Treatments prior to arrival: Benadryl and other (Claritin) Related Data Allergies Allergy/AdvReac Type Severity Reaction Status Date / Time clavulanic acid AdvReac Nausea and Verified 11/22/23 13:07 [From Augmentin] Vomiting Review of Systems Review of Systems: CONSTITUTIONAL: Denies fever, chills, or sweats. CARDIOVASCULAR: Denies chest pain, palpitations, or edema. RESPIRATORY: Denies cough or dyspnea. SKIN: Reports poison levar exposure with itchy red rash to area around eyes, and mouth, to genital area and small spot to right upper arm for past 2 days MUSCULOSKELETAL: Denies joint pain or myalgia. NEUROLOGIC: Denies headache, numbness, or weakness. All systems reviewed & are unremarkable except as noted in HPI and below PMFSH Past Medical History Medical History DDD (degenerative disc disease) Fracture of left upper extremity Fracture of right ankle Hypertension IBS (irritable colon syndrome) Pneumonia Surgical History Surgical History No pertinent past surgical history Family History Family History Father Diabetes mellitus Hypertension Mother Diabetes mellitus Hypertension Grandparent Cancer Diabetes mellitus Hypertension Heart disease Cerebrovascular accident Grandparent Cancer Diabetes mellitus Hypertension Social History Social History Smoking status: Current every day smoker Tobacco type: e-cigarettes/vaping Alcohol intake: current Alcohol use details: Beer 2-6 Beers a month Substance use type: does not use Living arrangements: with family Gender identity (if verbalized by the patient): Male Comments At time of signature, agree with nursing past medical, surgical, social and family history. There is no relevant family history pertinent to the presenting complaint Exam Narrative: GENERAL: Well-appearing, well-nourished, and in no acute distress. HEAD: Normocephalic, atraumatic. EYES: PERRLA, conjunctivae clear, and EOMI. ENT: Mucous membranes moist. Oropharynx without edema, erythema or lesions. NECK: Supple. No lymphadenopathy CHEST: Clear to auscultation. No respiratory distress.SAO2 99% on room air HEART: Regular rate and rhythm. SKIN: Warm, dry.? Patches of erythema and edema with raised itchy rash noted around eyes and mouth to genital area with small spot to right upper arm, no vesicle or pustule formation, known exposure to poison levar. NEURO:? Alert and oriented x3. PSYCH: Normal mood and affect Course Course Emergency Course: Patient is aware of diagnosis, understands and agrees to treatment plan.? Anticipatory guidance given.? Patient agrees to follow-up as directed and is aware of reasons to seek care at the emergency department. Portions of this record may have been created with
[2023-11-30] MEDS: methylPREDNISolone ACETATE 80 MG/ML VIAL IM (09:40)
== END 2023-11-30 10:11 | disposition home or self-care (01) ==
PROVIDERS: Emergency Provider Registered Nurse; PCP Family Medicine
DX: L25.5 Unspecified contact dermatitis due to plants, except food (principal); F17.290 Nicotine dependence, other tobacco product, uncomplicated; I10 Essential (primary) hypertension
CPT/HCPCS: 96372; 99213; G0463; J1010

== ENCOUNTER 2024-06-12 17:42 | Emergency (ER) | payer SELFPAY ==
[2024-06-12 17:47] VITALS: BP 123/79; PULSE 118; RESP 20; TEMP 38.5; O2SAT 98
--- NOTE | 2024-06-12 17:57 | ED.URI ---
HPI - URI/Sore Throat General Chief Complaint: Upper Respiratory Infection Stated Complaint: throat/fever/nausea Time Seen by Provider: 06/12/24 17:58 History of Present Illness HPI Narrative: 28 y/o male presented for c/o headache, body aches, sinus pressure/congestion, sore throat, cough, fever/chills. Started with nausea, vomiting today. Onset 2 days. Denies sob, wheezing, or lethargy. Related Data Allergies Allergy/AdvReac Type Severity Reaction Status Date / Time clavulanic acid (From AdvReac Nausea and Verified 11/22/23 13:07 Augmentin) Vomiting Review of Systems Review of Systems: per HPI [facility] Past Medical History Medical History Fracture of right ankle Fracture of left upper extremity Pneumonia DDD (degenerative disc disease) Hypertension IBS (irritable colon syndrome) Surgical History Surgical History No pertinent past surgical history Family History Family History Father Diabetes mellitus Hypertension Mother Diabetes mellitus Hypertension Grandparent Cancer Diabetes mellitus Hypertension Heart disease Cerebrovascular accident Grandparent Cancer Diabetes mellitus Hypertension Social History Social History Smoking status: Current every day smoker Tobacco type: e-cigarettes/vaping Alcohol intake: current Alcohol use details: Beer 2-6 Beers a month Substance use type: does not use Living arrangements: with family Gender identity (if verbalized by the patient): Male Exam Narrative: GENERAL: Ill-appearing, no acute distress. EYES: conjunctivae clear ENT: Mucous membranes moist. TMs pearly valdez with normal light reflex bilaterally; no tragal tenderness. Oropharynx mildly erythematous without lesions. Tonsils enlarged and without exudate. No drooling, no hoarseness, no trismus, uvula midline. No tripod positioning, hot potato voice, or soft palate swelling. NECK: Supple. No lymphadenopathy CHEST: Clear to auscultation, breath sounds equal. No respiratory distress, speaks in full sentences. HEART: Regular rate and rhythm. No murmur heard. SKIN: Warm, dry, no rash. NEURO: Alert and oriented x3. Course Course Emergency Course: Patient is aware of diagnosis, understands and agrees to treatment plan. Anticipatory guidance given. Patient agrees to follow-up as directed and is aware of reasons to seek care at the emergency department. Portions of this record may have been created with voice recognition software Level of Care: Express Care Visit Vital Signs Vital signs: Vital Signs Temperature 101.3 F H 06/12/24 17:47 Pulse Rate 118 H 06/12/24 17:47 Respiratory Rate 20 06/12/24 17:47 Blood Pressure 123/79 06/12/24 17:47 Pulse Oximetry 98 06/12/24 17:47 Oxygen Delivery Room Air 06/12/24 17:47 Temperature 101.3 F H 06/12/24 17:47 Pulse Rate 118 H 06/12/24 17:47 Respiratory Rate 20 06/12/24 17:47 Blood Pressure 123/79 06/12/24 17:47 Pulse Oximetry 98 06/12/24 17:47 Oxygen Delivery Room Air 06/12/24 17:47 MDM - URI/Sore Throat MDM Narrative Medical decision making narrative: POS strep result reviewed with pt. Has antiemetic at home. Advised close monitoring of GI symptoms, Advise supportive treatments and s/s to go to the ER. Patient is appropriate for outpatient treatment and follow-up. Differential Diagnosis Differential diagnosis: Likely upper respiratory infection, viral infection and pharyngitis Lab Data Labs: Lab Results 06/12/24 06/12/24 Range/Units 18:07 18:12 POC Influenza A Ag Negative (Negative) POC Influenza B Ag Negative (Negative) POC SARS CoV-2 Ag Negative (Negative) POC Grp A Strep Screen Positive (Negative) Discharge Plan Discharge Clinical Impression: Strep pharyngitis Patient Disposition: Home, Self-Care Condition: Stable Instructions: Antibiotic Form, Strep Throat (ED) Additional Instructions: - Take the antibiotic as directed. Fever and sore throat typically resolve within one to three days. Most patients can return to work, after 12 to 24 hours of antibiotic therapy, provided you are fever free and otherwise well. -Eat and drink things that are easy to swallow, like soft foods, cool liquids, tea with honey, or popsicles . -Salt water gargles and/or may use topical anesthetic ( Chloraseptic spray) or lozenges to relieve dryness or throat pain -Alternate Tylenol and ibuprofen as needed for pain and fever as directed. -Frequent hand washing or hand aerophysicist is one of the best ways to prevent spread of infection. Throw away the toothbrush after 24hours of antibiotic. -Follow up with primary care provider in 2-3 days if condition is not improving -Go to the ER if you have trouble breathing, cannot drink enough fluids, have muffled voice or drooling, difficulty opening your mouth, or severe swelling. Patient Language: Mohawk Prescriptions: New amoxicillin 500 mg tablet 1,000 mg PO DAILY 10 Days Qty: 20 0RF Follow-up/Referrals: Wallace Sams MD [Primary Care Provider] - Stand Alone Forms: Work/School Release IP Time of Disposition: 18:13
[2024-06-12 18:09] LABS: EDSTREPNEGPOS1 Positive (Negative)
[2024-06-12 18:14] LABS: EDCOVIDSCREEN Negative (Negative); EDINFLUASCREEN Negative (Negative); EDINFLUBSCREEN Negative (Negative)
== END 2024-06-12 18:16 | disposition home or self-care (01) ==
PROVIDERS: Emergency Provider Nurse Practitioner Family; PCP Family Medicine
DX: J02.0 Streptococcal pharyngitis (principal); Z20.822 Contact with and (suspected) exposure to COVID-19; F17.290 Nicotine dependence, other tobacco product, uncomplicated; I10 Essential (primary) hypertension
CPT/HCPCS: 87426; 87804; 87880; 99213; G0463

== ENCOUNTER 2024-08-11 10:48 | Emergency (ER) | payer SELFPAY ==
[2024-08-11 10:54] VITALS: BP 135/85; PULSE 105; RESP 20; TEMP 36.8; O2SAT 99
--- NOTE | 2024-08-11 12:21 | ED.URI ---
HPI - URI/Sore Throat General Chief Complaint: Upper Respiratory Infection Stated Complaint: Sore Throat/Sinus Problem/Ear Pain Time Seen by Provider: 08/11/24 12:20 Source: patient, RN notes reviewed and old records reviewed Mode of arrival: ambulatory Limitations: no limitations History of Present Illness HPI Narrative: 28 year male presents to [facility] Care with complaints of sinus congestion drainage for about month some left ear pain intermittently. Patient states the few days he has a severe sore throat and this morning he started with headache. Patient reports no known fevers, he has been taking Mucinex and he also has been taking NyQuil at night. MD elicited complaint: cough, sore throat, rhinorrhea, nasal congestion and other (left ear pain, headache today) Onset (ago): month(s) (month with some sinus congestion and left ear pain few days sore throat and headache.) Severity: moderate Able to tolerate fluids by mouth: Yes Treatments prior to arrival: other (Muxinex and NyQuil) Related Data Allergies Allergy/AdvReac Type Severity Reaction Status Date / Time clavulanic acid (From AdvReac Nausea and Verified 11/22/23 13:07 Augmentin) Vomiting Review of Systems Review of Systems: CONSTITUTIONAL: reports malaise, no chills, sweats, or fever. EYES: Denies visual changes, redness, or discharge. ENT: Reports rhinorrhea, congestion, sinus pain, left otalgia and sore throat. CARDIOVASCULAR: Denies chest pain, palpitations, or edema. RESPIRATORY: Reports cough.? Denies dyspnea. GASTROINTESTINAL: Denies abdominal pain, nausea, vomiting, diarrhea SKIN: Denies rash or itching. MUSCULOSKELETAL: Denies myalgia. NEUROLOGIC: Denies headache. All systems reviewed & are unremarkable except as noted in HPI and below PMFSH Past Medical History Medical History Fracture of right ankle Fracture of left upper extremity Pneumonia DDD (degenerative disc disease) Hypertension IBS (irritable colon syndrome) Surgical History Surgical History No pertinent past surgical history Family History Family History Father Diabetes mellitus Hypertension Mother Diabetes mellitus Hypertension Grandparent Cancer Diabetes mellitus Hypertension Heart disease Cerebrovascular accident Grandparent Cancer Diabetes mellitus Hypertension Social History Social History Smoking status: Current every day smoker Tobacco type: e-cigarettes/vaping Alcohol intake: current Alcohol use details: Beer 2-6 Beers a month Substance use type: does not use Living arrangements: with family Gender identity (if verbalized by the patient): Male Comments At time of signature, agree with nursing past medical, surgical, social and family history. There is no relevant family history pertinent to the presenting complaint Exam Narrative: GENERAL: Well-appearing, well-nourished, and in no acute distress. HEAD: Normocephalic EYES: PERRLA, conjunctivae clear ENT: Nares clear, turbinates edematous and erythematous, clear discharge, sinus pressure. Mucous membranes moist.Left TM red, Right TM pearly valdez with dull light reflex bilaterally; no tragal tenderness. Oropharynx erythematous without lesions. Tonsils red not enlarged and without exudate, no drooling, no hoarseness, no trismus, uvula midline.post nasal drainage NECK: Supple. No lymphadenopathy CHEST: Clear to auscultation, breath sounds equal. No wheezing, rhonchi, rales, or stridor. No respiratory distress, speaks in full sentences.cough SAO2 99% on room air HEART: Regular rate and rhythm. No murmur heard. SKIN: Warm, dry, no rash. NEURO: Alert and oriented x3. PSYCH: Normal mood and affect Course Course Emergency Course: Patient is aware of diagnosis, understands and agrees to treatment plan.? Anticipatory guidance given.? Patient agrees to follow-up as directed and is aware of reasons to seek care at the emergency department. Portions of this record may have been created with voice recognition software Level of Care: Express Care Visit Vital Signs Vital signs: Vital Signs Temperature 36.8 C 08/11/24 10:54 Pulse Rate 105 H 08/11/24 10:54 Respiratory Rate 20 08/11/24 10:54 Blood Pressure 135/85 08/11/24 10:54 Pulse Oximetry 99 08/11/24 10:54 Oxygen Delivery Room Air 08/11/24 10:54 Temperature 36.8 C 08/11/24 10:54 Pulse Rate 105 H 08/11/24 10:54 Respiratory Rate 20 08/11/24 10:54 Blood Pressure 135/85 08/11/24 10:54 Pulse Oximetry 99 08/11/24 10:54 Oxygen Delivery Room Air 08/11/24 10:54 Reviewed MDM - URI/Sore Throat MDM Narrative Medical decision making narrative: Differential diagnosis considered: Up virus, strep pharyngitis, allergic rhinitis, upper respiratory tract infection, sinusitis, rhinosinusitis, nasopharyngitis. viral pharyngitis, otitis media, otitis externa, pneumonia, bronchitis, viral cough syndrome, viral syndrome, and influenza.? Exam findings show no acute concerns or changes; patient is non-toxic appearing and is in no distress.? Patient is appropriate for outpatient treatment and follow-up. Differential Diagnosis Differential diagnosis: Likely upper respiratory infection, otitis media, sinusitis, influenza, pharyngitis and other (strep pharyngitis,COVID) Medical Records Attestation: I reviewed the patient's medical records. Lab Data Attestation: I reviewed the patient's lab results. Lab results narrative: Influenza A negative, InfluenzaB negative, CIVID antigen negative, Strep screen negative, culture sent Labs: Lab Results 08/11/24 08/11/24 Range/Units 10:58 12:29 POC Influenza A Ag Negative (Negative) POC Influenza B Ag Negative (Negative) POC SARS CoV-2 Ag Negative (Negative) POC Grp A Strep Screen Negative (Negative) reviewed Critical Care Time Critical Care Time Critical Care Time: No Discharge Plan Discharge Clinical Impression: Acute left otitis media Sinusitis Qualifiers: Sinusitis location: pansinusitis Chronicity: acute Recurrence: not specified as recurrent Qualified Code(s): J01.40 - Acute pansinusitis, unspecified Patient Disposition: Home, Self-Care Condition: Stable Instructions: Antibiotic Form, Sinusitis (ED), Ear Infection (GEN) Additional Instructions: Increase fluids especially juices and water [id number] cough and cold medicine of your choice for your symptoms Zyrtec Claritin or Patricia daily include Coricidin brand decongestant heat to the face 20-30 minutes 4-6 times a day for pain Salt water gargles, throat lozenges or throat sprays as desired Antibiotic as directed--finished the medication If your symptoms persist, change or worsen significantly before you can contact your personal physician then please, without delay, go to the emergency department for further evaluation. Follow-up with PCP in 7-10 days or sooner if needed Follow up with PCP soon in regards to your blood pressure which is elevated above threshold for referral. Blood pressure above 120/80 may indicate pre-hypertension blood pressure 135/85. Patient Language: Mosotho Prescriptions: New azithromycin 500 mg tablet 500 mg PO DAILY 5 Days Qty: 5 0RF Follow-up/Referrals: Wallace Sams MD [Primary Care Provider] - Time of Disposition: 12:52 Quality Alex Coma Scale Eyes: Open Verbal: Oriented and Alert Motor: Follows Commands [place] Coma Total Score: 15
[2024-08-11 13:36] LABS: EDSTREPNEGPOS1 Negative (Negative)
[2024-08-11 13:37] LABS: EDCOVIDSCREEN Negative (Negative); EDINFLUASCREEN Negative (Negative); EDINFLUBSCREEN Negative (Negative)
--- OUTSIDE RECORDS SUMMARY | 2024-08-11 13:52 | XMS_ITS | Referral Summary ---
Author Organization [facility] [address] [facility] [address] [facility] [address] [facility] Address [address] [place] [facility] [place] [address] Care Team Providers Care Terminal Clerk Name Role Phone Wallace Sams MD Primary Care Provider [phone] Allergies Active Allergy Reactions Criticality Noted Date Comments Amoxicillin-Pot Clavulanate Vomiting Low 01/06/20 21 Medications hydroCHLOROthiazide (HYDRODIURIL) 25 mg tablet Take 1 tablet (25 mg total) by mouth daily 1 Active ibuprofen (ADVIL,MOTRIN) 800 mg tablet Take 1 tablet (800 mg total) by mouth every 8 (eight) hours as needed 3 Active azithromycin (ZITHROMAX) 250 mg tablet Take 2 tablets the first day, then 1 tablet daily for 4 days. 6 tablet 4 Active ondansetron ODT (ZOFRAN-ODT) 4 mg disintegrating tablet Take 1 tablet (4 mg total) by mouth every 8 (eight) hours as needed for nausea 12 tablet 4 Active Active Problems Problem Noted Date Diagnosed Date HAMZAH (obstructive sleep apnea) 09/28/2020 Chronic GERD 09/09/2020 Family history of thromboembolic disease 021 Elevated LDL cholesterol level 08/02/2020 HTN (hypertension), benign 08/02/2020 Degeneration of lumbar or lumbosacral interverte bral disc 04/10/2013 Immunizations Immunization Administration Dates Next Due DTP / HiB 09/10/1996,03/30/1995,01/15/1995 ,1994 DTaP 02/15/2000 HPV, Quadrivalent 10/23/2011,08/21/2011 Hep A, Pediatric 08/21/2011 Hep B, Adolescent or Pediatric 09/10/1996,1994,1994 IPV 02/15/2000 MMR 02/15/2000,09/12/1995 Meningococcal MCV4P (Menactra) 08/21/2011 OPV 03/30/1995,01/15/1995,1994 Tdap 01/02/2018,06/25/2010,04/14/2009 Social History Tobacco Use Types Packs/Day Years Used Date Smoking Tobacco: Every Day Vaping Smokeless Tobacco: Former Chew Personal Safety Answer Date Recorded Getting School Help Needed Not on file 08/16 Sex and Gender Information Value Date Recorded Sex Assigned at Not on file 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 Gender Identity Not on file Sexual Orientation Not on file Last Filed Vital Signs Vital Sign Reading Time Taken Comments Blood Pressure 110/78 03/10/2024 10:58 AM CDT Pulse 108 03/10/2024 10:58 AM CDT Temperature 37.1 C (98.8 F) 03/10/2024 10:58 AM CDT Respiratory Rate 17 03/10/2024 10:5 8 AM CDT Oxygen Saturation 98% 03/10/2024 10: 58 AM CDT Inhaled Oxygen Concentration - - Weight 120.4 kg (265 lb 6.4 oz) 024 10:58 AM CDT Height 188 cm (6' 2 ) 03/10/2024 10:58 AM CDT Body Mass Index 34.08 03/10/2024 10:58 AM CDT Plan of Treatment Not on file Insurance [facility] CHO[facility] OOS Care Teams Terminal Clerk Relationship Specialty Start Date End Date Wallace Sams MD PCP - General Family Practice 09/26/21
--- OUTSIDE RECORDS SUMMARY | 2024-08-11 13:52 | XMS_ITS | Clinical Summary ---
Author Organization [facility] [employer] [place] Address [address] [place] [address] Care Team Providers Care Creative Project Manager Name Role Phone Unavailable Primary Care Provider Unavailabl e Allergies No known active allergies Medications esomeprazole (NexIUM) 40 mg Capsule, Delayed Release(E.C.) Take 1 Capsule (40 mg) by mouth daily before breakfast. 30 Capsule 4 08/02/2020 Active hydroCHLOROthia zide 25 mg tabletIndicatio ns:HTN (hypertension), benign Take 1 Tablet (25 mg) by mouth daily. 90 Tablet 4 09/03/2020 Active amitriptyline (ELAVIL) 25 mg tablet TAKE 1 TABLET(25 MG) BY MOUTH DAILY AT BEDTIME 30 Tablet 2 12/13/2020 Active Active Problems Problem Noted Date Diagnosed Date HAMZAH (obstructive sleep apnea) 09/28/2020 Chronic GERD 09/09/2020 Obesity (BMI 35.0-39.9 without comorbidity) 07/27 Family history of thromboembolic disease 021 Elevated LDL cholesterol level 08/02/2020 HTN (hypertension), benign 08/02/2020 Snoring 08/02/2020 Chronic low back pain 08/30/2017 Resolved Problems Problem Noted Date Diagnosed Date Resolved Date Precordial pain 08/02/2020 08/19/2020 Immunizations Immunization Administration Dates Next Due (ADACEL/BOOSTRIX)(10 YR UP) TDAP VACCINE, 0.5ML, IM 01/02/2018,06/25/2010 Family History Medical History Relation Name Comments No Known Problems Brother 1 No Known Problems Brother 2 Clotting Disorder Father Emery Coleman Jr Diabetes Father Emery Knappt Jr Hypertension Father Emery Kanppt Jr Dementia Maternal Grandfather Ibrahima Temple Stroke Maternal Grandfather Ibrahima Temple Diabetes Maternal Grandmother Delaney Maverick Heart Failure Maternal Grandmother Delaney Temple Heart Surgery Maternal Grandmother Delaney Temple triple bipass Stroke Maternal Grandmother Delaney Temple Clotting Disorder Mother Lucrecia [place] Diabetes Mother Lucrecia [place] Hypertension Mother Lucrecia [place] No Known Problems Paternal Grandfather Cancer Paternal Grandmother Natalie Adorno Diabetes Paternal Grandmother Natalie Adorno Colon Cancer Neg Hx Relation Name Status Comments Brother 1 Alive Brother 2 Alive Father Emery Coleman Jr Alive Maternal Grandfather Ibrahima Temple Maternal Grandmother Delaney Temple Mother Lucrecia [place] Alive Paternal Grandfather Alive Paternal Grandmother Natalie Adorno Alive Social History Tobacco Use Types Packs/Day Years Used Date Smoking Tobacco: Former Cigarettes Smokeless Tobacco: Current Tobacco Cessation:Counseling Given: No Comments:Currently Vape Alcohol Use Standard Drinks/Week Comments Yes 3 (1 standard drink = 0.6 oz pur e alcohol) social Sex and Gender Information Value Date Recorded Sex Assigned at Not on file 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 Gender Identity Not on file Sexual Orientation Not on file Last Filed Vital Signs Vital Sign Reading Time Taken Comments Blood Pressure 128/82 09/09/2020 10:30 AM CDT Pulse 84 09/09/2020 10:30 AM CDT Temperature 36.7 C (98 F) 09/09/2020 10:30 AM CDT Respiratory Rate 16 09/09/2020 10:30 AM CDT Oxygen Saturation 94% 09/09/2020 10:30 AM CDT Inhaled Oxygen Concentration - - Weight 120.7 kg (266 lb) 09/09/2020 10:30 AM CDT Height 188 cm (6' 2 ) 09/09/2020 10:30 AM CDT Body Mass Index 34.15 09/09/2020 10:30 AM CDT Plan of Treatment Health Maintenance Due Date Last Done Comments HEPATITIS B VACCINES (1 of 3 - 19+ 3-dose series) 2013 INFLUENZA VACCINE (#1) 2024 DTAP/TDAP/TD VACCINES (3 - T d or Tdap) 01/03/2028 01/02/2018, 06/25/2010 HPV VACCINES Aged Out No longer eligi ble based on patient's age to complete this topic PNEUMOCOCCAL VACCINE 0-64 YEARS Aged Out No longer eligible b ased on patient's age to complete this topic Insurance [facility] OPTIONS PPO [id number] * Guarantor: [employer] A THRU D (C) Account Type Relation to Patient Date of Phone Billing Address Corporate Employer ATTN: [employer] [address] [address] * Guarantor: [employer] Account Type Relation to Patient Date of Phone Billing Address Corporate Employer ATTN: [employer] [address] [address] Advance Directives For more information, please contact: [phone] * Full Code (Latest Code Status on File) Date Activated Date Inactivated Comments 01/24/2018 7:33 AM 01/24/2018 10:49 AM
--- OUTSIDE RECORDS SUMMARY | 2024-08-11 13:52 | XMS_ITS | Clinical Summary ---
Author Organization [facility] [address] [facility] Address [address] [place] [address] Care Team Providers Care Machinist Tool And Die Name Role Phone Wallace Sams MD Primary Care Provider [phone] Allergies Active Allergy Reactions Criticality Noted Date [...] MCV4P (Menactra) 08/21/2011 OPV 03/30/1995,01/15/1995,1994 Tdap 01/02/2018,06/25/2010,04/14/2009 Surgical History Surgery Date Site/Laterality Comments NO PAST SURGERIES Medical History Medical History Date Comments Irritable bowel syndrome Hypertension Family History Medical History Relation Name Comments Diabetes Father Hypertension Father Diabetes Mother Hypertension Mother Relation Name Status Comments Father Alive Mother Alive Social History Tobacco Use Types Packs/Day Years Used Date Smoking Tobacco: Every Day Vaping Smokeless Tobacco: Former Chew Personal Safety Answer Date Recorded Getting School Help Needed Not on file 08/16 Sex and Gender Information Value Date Recorded Sex Assigned at Not on file 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 Gender Identity Not on file Sexual Orientation Not on file Obstetrics History Last Filed Vital Signs Vital Sign Reading [...] 03/10/2024 10:58 AM CDT Plan of Treatment Health Maintenance Due Date Last Done Comments Depression Screening 1994 Hepatitis C Screening 1994 Varicella Vaccines (1 of 2 - 13+ 2-dose series) 09/08/2007 HPV Vaccines (3 - Male 3-dos e series) 02/19/2012 10/23/2011, 08/21/2011 Regular Well Visit/Exam 18-64 2012 Pneumococcal vaccine <65 (1 of 2 - PCV) 2013 Influenza Vaccine (#1) 2024 DTaP/Tdap/Td Vaccine (9 - Td or Tdap) 01/03/2028 01/02/2018, 06/25/2010, 04/14/2009, Additional history exists Hepatitis B Screening Completed 09/10/1996 , 1994, 1994 Insurance [facility] CHOICE OOS Care Teams Machinist Tool And Die Relationship Specialty Start Date End Date Wallace Sams MD PCP - General Family Practice 09/26/21
== END 2024-08-11 13:04 | disposition home or self-care (01) ==
PROVIDERS: Emergency Provider Registered Nurse; PCP Family Medicine
DX: H66.92 Otitis media, unspecified, left ear (principal); J01.40 Acute pansinusitis, unspecified; Z20.822 Contact with and (suspected) exposure to COVID-19; F17.290 Nicotine dependence, other tobacco product, uncomplicated; I10 Essential (primary) hypertension
CPT/HCPCS: 87081; 87426; 87804; 87880; 99213; G0463

== ENCOUNTER 2025-01-09 12:03 | Outpatient (CLI) | payer OTHER, SELFPAY ==
--- OUTSIDE RECORDS SUMMARY | 2025-01-09 12:07 | XMS_ITS | Clinical Summary ---
Author Organization [facility] Address [address] [place] [address] Care Team Providers Care Brick Catcher Name Role Phone Unavailable Primary Care Provider Unavailabl e Source Comments [facility],non-owned Affiliates and Associated Physician Practices is amultiple site organization consisting of ambulatory clinics and hospital sitesin [place], [place], [place] and [place]. This disclosure is being madepursuant to the Care Everywhere program and may not contain all information available regarding this patient. Last updated 18.[facility] Allergies No known active allergies Medications * Be aware that medications may not be up to date on this document. Alwaysverify current medications with the patient. ibuprofen (MOTRIN) 800 MG tablet Take 1 Tab by mouth every 8 hours as needed for Pain. 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 Gender Identity Not on file Sexual Orientation Not on file Last Filed Vital Signs Vital Sign Reading Time Taken Comments Blood Pressure 135/80 04/07/2013 1:30 PM CDT Pulse 68 04/07/2013 1:30 PM CDT Temperature - - Respiratory Rate - - Oxygen Saturation - - Inhaled Oxygen Concentration - - Weight 108.9 kg (240 lb) 04/07/2013 1:30 PM CDT Height 190.5 cm (6' 3) 04/07/2013 1:30 PM CDT Body Mass Index 30 04/07/2013 1:30 PM CDT Plan of Treatment Health Maintenance Due Date Last Done Comments HIV SCREENING 2009 HEPATITIS C SCREENING 09/02/2012 DTAP/TDAP/TD VACCINES (1 - Tdap) 2013 HEPATITIS B VACCINE (1 of 3 - 19+ 3-dose series) 2013 HPV VACCINE (1 - 3-dose SCDM series) 2021 COVID-19 VACCINE (1 - 2023-2 5 season) 2024 DEPRESSION SCREENING 06/25/2024 INFLUENZA VACCINE (#1) 2025 ZOSTER VACCINE (1 of 2) 2044 HIB VACCINE Aged Out No longer eligi ble based on patient's age to complete this topic MENINGOCOCCAL (Group B) VACC INE SHARED DECISION-MAKING Aged Out No longer eligibl e based on patient's age to complete this topic MENINGOCOCCAL GROUPS A/C/Y/W VACCINE Aged Out No longer eligible b ased on patient's age to complete this topic PNEUMOCOCCAL VACCINE Aged Out No long er eligible based on patient's age to complete this topic Insurance [place]ID [place]
--- OUTSIDE RECORDS SUMMARY | 2025-01-09 12:07 | XMS_ITS | Clinical Summary ---
Author Organization [facility] [employer] [place] Address [address] [place] [address] Care Team Providers Care Railroad Car Truck Builder Name Role Phone Unavailable Primary Care Provider [...] Brother 1 No Known Problems Brother 2 Diabetes Father Emery Coleman Jr Hemophilia Father Emery Coleman Jr Hypertension Father Emery Coleman Jr Dementia Maternal Grandfather Ibrahima Temple Stroke Maternal Grandfather Ibrahima Temple Diabetes Maternal Grandmother Delaney Temple Heart Failure Maternal Grandmother Delaney Temple Heart Surgery Maternal Grandmother Delaney Temple triple bipass Stroke Maternal Grandmother Delaney Temple Diabetes Mother Lucrecia [place] Hemophilia Mother Lucrecia [place] Hypertension Mother Lucrecia [place] No Known Problems Paternal Grandfather Cancer Paternal Grandmother Natalie Adorno Diabetes Paternal Grandmother Natalie Adorno Colon Cancer Neg Hx Relation Name Status Comments Brother 1 Alive Brother 2 Alive Father Emery Coleman Jr Alive Maternal Grandfather Ibrahima Temple Maternal Grandmother Delaney Temple Mother Lucrecia Riverabitt Alive Paternal Grandfather Alive Paternal Grandmother Natalie [...] on file 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 OPTIONS [id number] * Guarantor: [employer] A THRU D (C) Account Type Relation to Patient Date of Phone Billing Address Corporate Employer ATTN: [employer] [address] [address] * Guarantor: [employer] Account Type Relation to Patient Date of Phone Billing Address Corporate Employer ATTN: [employer] [address] [address] Advance Directives For more information, please contact: [phone] * Full Code (Latest Code Status on File) Date Activated Date Inactivated Comments 01/24/2018 7:33 AM 01/24/2018 10:49 AM
[2025-01-09 13:44] LABS: Ferritin 90.00 ng/mL (17.9-464)
== END 2025-01-09 12:04 | disposition home or self-care (01) ==
PROVIDERS: PCP Family Medicine; Visit Provider Nurse Practitioner Family
DX: G25.81 Restless legs syndrome (principal)
CPT/HCPCS: 36415; 82728

== ENCOUNTER 2025-02-05 14:14 | Emergency (ER) | payer OTHER, SELFPAY ==
--- NOTE | ~2025-02-05 | XR_ITS ---
EXAMINATION: XR knee RT min 4V DATE: 02/05/2025 14:58 INDICATION: Patellar dislocation post injury 5 days prior with right knee pain TECHNIQUE: Anteroposterior, 2 oblique, sunrise and crosstable lateral views of the right knee were ob tained COMPARISON: None. FINDINGS: Alignment is normal. No fracture. Joint spaces appear normal on nonweightbearing imaging. No joint e ffusion/layering lipohemarthrosis. Mild soft tissue swelling anteromedial to the right knee. IMPRESSION: 1. No right knee joint effusion or osseous abnormality. Reviewed, dictated and finalized at location A.
--- OUTSIDE RECORDS SUMMARY | 2025-02-05 14:17 | XMS_ITS | Clinical Summary ---
Author Organization [facility] Address [address] [place] [address] Care Team Providers Care Client Resource Specialist Name Role Phone Unavailable Primary Care Provider Unavailabl e Source Comments [facility],non-owned Affiliates and Associated Physician Practices is amultiple site organization consisting of ambulatory clinics and hospital sitesin [place], [place], [place] and [place]. This disclosure is being madepursuant to the Care Everywhere program and may not contain all information available regarding this patient. Last updated 18.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
--- OUTSIDE RECORDS SUMMARY | 2025-02-05 14:17 | XMS_ITS | Clinical Summary ---
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 * Full Code (Latest Code Status on File) Date Activated Date Inactivated Comments 01/24/2018 7:33 AM 01/24/2018 10:49 AM
--- OUTSIDE RECORDS SUMMARY | 2025-02-05 14:21 | XMS_ITS | Clinical Summary ---
Author Organization [facility] [address] [facility] Address [address] [place] [address] Care Team Providers Care Water Leak Repairer Name Role Phone Wallace Sams MD Primary Care Provider [phone] Allergies Active Allergy Reactions Criticality Noted Date Comments Amoxicillin-Pot Clavulanate Vomiting Low 01/06/20 21 Medications hydroCHLOROthiazid e (HYDRODIURIL) 25 mg tablet Take 1 tablet (25 mg total) by mouth daily 09/04/19 21 Active ibuprofen (ADVIL,MOTRIN) 800 mg tablet Take 1 tablet (800 mg total) by mouth every 8 (eight) hours as needed 04/07/20 13 Active azithromycin (ZITHROMAX) 250 mg tablet Take 2 tablets the first day, then 1 tablet daily for 4 days. 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 Gender Identity Not on file Sexual Orientation Not on file Obstetrics History Last Filed Vital Signs Vital Sign Reading Time Taken Comments Blood Pressure 138/86 10/27/2024 9:29 AM CDT Pulse 66 10/27/2024 9:29 AM CDT Temperature 37.1 C (98.8 F) 10/27/2024 9:29 AM CDT Respiratory Rate 16 10/27/2024 9:29 AM CDT Oxygen Saturation 98% 10/27/2024 9:29 AM CDT Inhaled Oxygen Concentration - - Weight 122 kg (269 lb) 10/27/2024 9:29 AM CDT Height 188 cm (6' 2) 10/27/2024 9:29 AM CDT Body Mass Index 34.54 10/27/2024 9:29 AM CDT Plan of Treatment Health Maintenance Due Date Last Done Comments Depression Screening 1994 Hepatitis C Screening 1994 Varicella Vaccines (1 of 2 - 13+ 2-dose series) 09/08/2007 HPV Vaccines (3 - Male 3-dos e series) 02/19/2012 10/23/2011, 08/21/2011 Regular Well Visit/Exam 18-64 2012 Pneumococcal vaccine <65 (1 of 2 - PCV) 2013 Influenza Vaccine (#1) 2025 DTaP/Tdap/Td Vaccine (9 - Td or Tdap) 01/03/2028 01/02/2018, 06/25/2010, 04/14/2009, Additional history exists Hepatitis B Screening Completed 09/10/1996 , 1994, 1994 Insurance [facility] CHOICE OOS Care Teams Water Leak Repairer Relationship Specialty Start Date End Date Wallace Sams MD PCP - General Family Practice 09/26/21
[2025-02-05 14:22] VITALS: BP 144/87; PULSE 80; RESP 18; TEMP 36.8; O2SAT 100
--- NOTE | 2025-02-05 15:01 | ED.LOWEXIN ---
HPI - Extremity Injury (Lower) General Chief Complaint: Extremity Injury, Lower Stated Complaint: Right knee re injury Time Seen by Provider: 02/05/25 14:35 Source: patient and RN notes reviewed Mode of arrival: ambulatory Limitations: no limitations History of Present Illness HPI Narrative: Patient presents today complaining of right knee pain x5 days. States the patella dislocated, as it has in the past, then he reduced it. Since that time, he has had pain to the anterior knee with intermittent numbness. Currently rates his pain 8/10, which increases with weight-bearing. He has tried Tylenol, ibuprofen, and topical pain relievers without much improvement. Patient walks 10-15 miles per day at work and now has to take frequent breaks. Patient reports he has had a similar injury in the past, saw his PCP, who ordered physical therapy for him for a possible torn meniscus. States his insurance did not cover physical therapy at that time, so he did exercises at home, which did help. Related Data Allergies Allergy/AdvReac Type Severity Reaction Status Date / Time clavulanic acid (From AdvReac Nausea and Verified 02/05/25 14:18 Augmentin) Vomiting PMFSH Past Medical History Medical History Vasectomy evaluation Fracture of right ankle Fracture of left upper extremity Pneumonia DDD (degenerative disc disease) Hypertension IBS (irritable colon syndrome) Surgical History Surgical History No pertinent past surgical history Family History Family History Father Diabetes mellitus Hypertension Mother Diabetes mellitus Hypertension Grandparent Cancer Diabetes mellitus Hypertension Heart disease Cerebrovascular accident Grandparent Cancer Diabetes mellitus Hypertension Social History Social History Smoking status: Current every day smoker Tobacco type: e-cigarettes/vaping Alcohol intake: current Alcohol use details: Beer 2-6 Beers a month Substance use type: does not use Living arrangements: with family Gender identity (if verbalized by the patient): Male Comments At time of signature, I have reviewed and agree with nursing past medical, surgical, social and family history unless otherwise noted. Please see nursing chart for further information. There is no relevant family history pertinent to the presenting complaint Exam Narrative: GENERAL: Well-appearing, well-nourished, and in no acute distress. HEAD: Normocephalic, atraumatic. EYES: EOMI. No redness or drainage. Conjunctivae normal. ENT: Mucous membranes pink and moist. NECK: Normal AROM. CHEST: No respiratory distress. EXTREMITIES: Right knee: Tenderness to the medial and lateral joint line as well as tenderness to the patellar tendon. Mild localized edema about the lateral knee. No laxity of the patella. Pain with active flexion and extension. Distal sensation intact. Capillary refill normal. Pedal pulse normal. SKIN: Warm, dry, no rash. Capillary refill normal. Normal skin turgor. NEURO: No focal deficits. Alert and oriented x3. Gait steady. PSYCH: Normal affect. No signs of depression or anxiety. Course Course Level of Care: Express Care Visit Vital Signs Vital signs: Vital Signs Temperature 98.3 F 02/05/25 14:22 Pulse Rate 80 02/05/25 14:22 Respiratory Rate 18 02/05/25 14:22 Blood Pressure 144/87 H 02/05/25 14:22 Pulse Oximetry 100 02/05/25 14:22 Oxygen Delivery Room Air 02/05/25 14:22 Temperature 98.3 F 02/05/25 14:22 Pulse Rate 80 02/05/25 14:22 Respiratory Rate 18 02/05/25 14:22 Blood Pressure 144/87 H 02/05/25 14:22 Pulse Oximetry 100 02/05/25 14:22 Oxygen Delivery Room Air 02/05/25 14:22 Reviewed MDM - Extremity Injury (Lower) MDM Narrative Medical decision making narrative: 29-year-old male patient presents today with right knee pain. States 5 days ago his patella dislocated then was self reduced. States this has happened before in the past. He is reporting severe pain with intermittent numbness the anterior knee. Upon exam there is tenderness to the medial and lateral joint line as well as the patellar tendon area with some mild edema about the knee and some pain with flexion and extension of the knee. X-rays negative aside from some soft tissue swelling. Recommend orthopedic follow-up as patient may need additional imaging. Also recommend RICE treatment in the meantime. Differential Diagnosis Differential diagnosis: Likely acute internal derangement of knee and other (Meniscus injury, ligamentous injury, fracture) Imaging Data Radiologist's impression: ITS Impressions Knee X-Ray 02/05/25 15:00 IMPRESSION: 1. No right knee joint effusion or osseous abnormality. Critical Care Time Critical Care Time Critical Care Time: No Discharge Plan Discharge Clinical Impression: Injury of knee, right Qualifiers: Encounter type: initial encounter Qualified Code(s): S89.91XA - Unspecified injury of right lower leg, initial encounter Patient Disposition: Home Condition: Stable Instructions: Knee Pain (ED) Additional Instructions: Your x-ray is negative. Elevate and ice your knee. Taking anti-inflammatories such as Aleve or ibuprofen. Wear an [id number] knee brace if needed for stability. Please call and schedule a follow-up visit with Orthopedics for further evaluation. Your blood pressure was elevated above 120/80 today at Urgent Care. This puts you above the threshold for follow up. Please schedule a followup visit with your personal physician as soon as possible, for further evaluation and treatment. Even blood pressure exceeding 120/80 may indicate pre-hypertension. Patient Language: British Prescriptions: No Action sumatriptan succinate 100 mg tablet See Rx Instructions PO .COMPLEX Qty: 28 5RF Rx Instructions: take 1 tab at onset of headache; if no relief, may repeat 1 tab after at least 2 hrs; max = 2 tabs/24 hrs PO trazodone 50 mg tablet See Rx Instructions PO QHS PRN (Reason: sleep) Qty: 60 0RF Rx Instructions: take 1-2 tablets at bedtime as needed sumatriptan succinate 50 mg tablet See Rx Instructions PO .COMPLEX Qty: 10 0RF Rx Instructions: take 1 tab at onset of headache; if no relief may repeat 1 tab after at least 2 hrs; max = 4 tabs/24 hr PO Follow-up/Referrals: Wallace Sams MD [Primary Care Provider] - Sachin Garcia MD [Physician] - Time of Disposition: 15:19
== END 2025-02-05 15:25 | disposition home or self-care (01) ==
PROVIDERS: Emergency Provider Nurse Practitioner; PCP Family Medicine
DX: S89.91XA Unspecified injury of right lower leg, initial encounter (principal); X58.XXXA Exposure to other specified factors, initial encounter; I10 Essential (primary) hypertension; F17.290 Nicotine dependence, other tobacco product, uncomplicated
CPT/HCPCS: 73564; 99213; G0463

== ENCOUNTER 2025-03-10 09:24 | Emergency (ER) | payer OTHER, SELFPAY ==
--- NOTE | ~2025-03-10 | CT_ITS ---
EXAMINATION: CT thoracic lumbar wo con, 03/10/2025 11:14 CDT HISTORY: mid to lower back pain,hx of degenerative disc disease of lb COMPARISON: No comparisons available. Technique: Axial images were obtained of the spine per protocol. One or more of the following dose reduction techniques were used: automated exposure control, adjustment of the mA and/or kV according to patient size, use of iterative reconstruction technique. Unless otherwise stated, incidental findings do not require dedicated follow up imaging Findings: Minimal loss of vertebral height throughout, no acute fracture or subluxation. There is moderate loss of disc height most marked at T10-11 and T11-T12 however no gross severe canal or foraminal stenosis identified Soft tissues unremarkable Impression: No acute abnormality. Reviewed, dictated and finalized at location A. Impression: No acute abnormality.
[2025-03-10 09:31] VITALS: BP 130/99; PULSE 81; RESP 16; O2SAT 100
--- OUTSIDE RECORDS SUMMARY | 2025-03-10 10:44 | XMS_ITS | Clinical Summary ---
Author Organization [facility] Address [address] [place] [address] Care Team Providers Care Oil Deliverer Name Role Phone Unavailable Primary Care Provider Unavailabl e Source Comments [facility],non-owned Affiliates and Associated Physician Practices is amultiple site organization consisting of ambulatory clinics and hospital sitesin [place], [place], [place] and [place]. This disclosure is being madepursuant to the Care Everywhere program and may not contain all information available regarding this patient. Last updated 18.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
--- OUTSIDE RECORDS SUMMARY | 2025-03-10 10:44 | XMS_ITS | Clinical Summary ---
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 OPTIONS O [id number] * Guarantor: [employer] THRU D (C) Account Type Relation to Patient Date of Phone Billing Address Corporate Employer ATTN: [employer] [address] [address] * Guarantor: [employer] Account Type Relation to Patient Date of Phone Billing Address Corporate Employer ATTN: [employer] [address] [address] Advance Directives For more information, please contact: [phone] * Full Code (Latest Code Status on File) Date Activated Date Inactivated Comments 01/24/2018 7:33 AM 01/24/2018 10:49 AM
--- OUTSIDE RECORDS SUMMARY | 2025-03-10 10:44 | XMS_ITS | Clinical Summary ---
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
--- NOTE | 2025-03-10 11:00 | ED.BACK ---
HPI - Back Pain/Injury General Chief Complaint: Back Pain/Injury Stated Complaint: back pain muscle spasms - felt pop nerve issues Time Seen by Provider: 03/10/25 10:40 Source: patient Mode of arrival: ambulatory Limitations: no limitations History of Present Illness HPI Narrative: Patient is a 29 y/o male who presents to the ED with c/o lower back pain. Patient reports he has had persistent lower abdominal discomfort since last Sunday. He saw his primary care doctor for this and was prescribed Flexeril and prednisone. He reported improvement with these medications, but states he has been mostly laying in bed most of last week. He began moving around more last night in preparation to return to work today, but reported having worsening pain. He took his Flexeril this morning but denied improvement. Reports intermittent tingling in his bilateral lower extremities, denies numbness, saddle anesthesia, bowel or bladder incontinence. Denies abdominal pain, dysuria. Related Data Allergies Allergy/AdvReac Type Severity Reaction Status Date / Time clavulanic acid (From AdvReac Nausea and Verified 02/05/25 14:18 Augmentin) Vomiting Review of Systems Review of Systems: All systems reviewed & are unremarkable except as noted in HPI. All systems reviewed & are unremarkable except as noted in HPI and below PMFSH Past Medical History Medical History Vasectomy evaluation Fracture of right ankle Fracture of left upper extremity Pneumonia DDD (degenerative disc disease) Hypertension IBS (irritable colon syndrome) Surgical History Surgical History No pertinent past surgical history Family History Family History Father Diabetes mellitus Hypertension Mother Diabetes mellitus Hypertension Grandparent Cancer Diabetes mellitus Hypertension Heart disease Cerebrovascular accident Grandparent Cancer Diabetes mellitus Hypertension Social History Social History Smoking status: Current every day smoker Tobacco type: e-cigarettes/vaping Alcohol intake: current Alcohol use details: Beer 2-6 Beers a month Substance use type: does not use Living arrangements: with family Gender identity (if verbalized by the patient): Male Exam Narrative: GENERAL: Well appearing, obese with BMI of 34.8, non-toxic, in no acute distress. HEAD: Normocephalic, atraumatic. RESPIRATORY: Airway patent, respirations nonlabored. CARDIOVASCULAR: Regular rate and rhythm MUSCULOSKELETAL: Moves all extremities. No gross deformities. No significant midline tenderness and thoracic/lumbar region. Diffuse paraspinal muscle tenderness throughout bilateral regions of thoracic and lumbar spine, worse on R. Palpable muscle tension. Sensation intact. SKIN: Warm, dry, normal color. NEURO: A&O X3. Speech clear. Cranial nerves II-XII grossly intact. Steady gait. No ataxic movements. PSYCHIATRIC: Appropriate mood and affect. Normal interaction. Course Vital Signs Vital signs: Vital Signs Pulse Rate 81 03/10/25 09:31 Respiratory Rate 16 03/10/25 09:31 Blood Pressure 130/99 H 03/10/25 09:31 Pulse Oximetry 100 03/10/25 09:31 Oxygen Delivery Room Air 03/10/25 09:31 Pulse Rate 81 03/10/25 09:31 Respiratory Rate 16 03/10/25 09:31 Blood Pressure 130/99 H 03/10/25 09:31 Pulse Oximetry 100 03/10/25 09:31 Oxygen Delivery Room Air 03/10/25 09:31 MDM - Back Pain/Injury MDM Narrative Medical decision making narrative: Patient?s pain is positional and localized to paraspinal muscles without signs of cord compression or cauda equina. Normal neurologic exams. No red flag symptoms. No fever noted and no significant risk factors for osteomyelitis or spinal epidural abscess. No symptoms or signs to suggest pain is referred from abdominal or source. CT of lumbar/thoracic spine showed some disc height loss from T10-T12, which patient reports is from an injury he sustained in high school. No acute fracture. No other concerning features. Patient feeling improved with supportive therapy in the ED. Patient ambulates with a steady gait and is felt to be a reasonable candidate for continued outpatient management. Discussed continued management of pain at home. Will prescribe short course of pain medication, different muscle relaxer for home. Advised close follow-up with PCP. Given return precautions. Discharged in stable condition. Medical Records Attestation: I reviewed the patient's medical records. Imaging Data Attestation: I personally reviewed and interpreted this imaging study as follows: Radiologist's impression: ITS Impressions Thoracic/Lumbar Spine CT 03/10/25 11:29 Impression: No acute abnormality. Discharge Plan Discharge Clinical Impression: Strain of lumbar region Qualifiers: Encounter type: initial encounter Qualified Code(s): S39.012A - Strain of muscle, fascia and tendon of lower back, initial encounter Patient Disposition: Home Condition: Stable Instructions: Antibiotic Form, Acute Low Back Pain (ED), Lower Back Exercises (ED) Additional Instructions: Continue Tylenol and Ibuprofen around the clock as needed for pain. You may take 1000 mg of Tylenol and 600 mg of ibuprofen every 6 hours. [place] as needed for more severe pain. You may use ice/heat, lidocaine patches to area of pain. Take muscle relaxers as needed and prescribed. Recommend taking these at night as they may cause sedation. Do not drive, operate heavy machinery, drink alcohol while on muscle relaxers as this may cause further sedation. Follow-up with your primary care doctor for further evaluation. Return to the ED if you experience worsening or severe pain, recurrent injury, numbness in groin or legs, going to the bathroom without meaning to, unable to keep down food or drink, or any other symptoms of concern. Patient Language: Maltese Prescriptions: New hydrocodone-acetaminophen 5-325 mg tablet 1 tablet PO Q6H PRN (Reason: pain) Qty: 6 0RF methocarbamol 750 mg tablet 1,500 mg PO TID PRN (Reason: muscle spasm) Qty: 15 0RF lidocaine 5 % adhesive patch,medicated 1 patch topical DAILY Qty: 15 0RF Rx Instructions: leave on most painful area for up to 12 hrs No Action prednisone 20 mg tablet 20 mg PO BID Qty: 10 0RF cyclobenzaprine 10 mg tablet 10 mg PO TID PRN (Reason: muscle spasm) Qty: 30 0RF sumatriptan succinate 100 mg tablet See Rx Instructions PO .COMPLEX Qty: 28 5RF Rx Instructions: take 1 tab at onset of headache; if no relief, may repeat 1 tab after at least 2 hrs; max = 2 tabs/24 hrs PO trazodone 50 mg tablet See Rx Instructions PO QHS PRN (Reason: sleep) Qty: 60 0RF Rx Instructions: take 1-2 tablets at bedtime as needed sumatriptan succinate 50 mg tablet See Rx Instructions PO .COMPLEX Qty: 10 0RF Rx Instructions: take 1 tab at onset of headache; if no relief may repeat 1 tab after at least 2 hrs; max = 4 tabs/24 hr PO Follow-up/Referrals: Wallace Sams MD [Primary Care Provider, Family Practice] Stand Alone Forms: Work/School Release IP Time of Disposition: 13:54
[2025-03-10] MEDS: KETOROLAC (*BKC) 60 MG/2 ML VIAL IM (11:25)
[2025-03-10] MEDS: HYDROcodone/acetaminophen (*CRX) 5-325 MG TABLET 1 TAB PO (11:25)
[2025-03-10] MEDS: LIDOCAINE 5% PATCH 1 PATCH TRANSDERM (11:25)
--- OUTSIDE RECORDS SUMMARY | 2025-03-10 12:54 | XMS_ITS | Clinical Summary ---
Author Organization [facility] Address [address] [place] [place] [address] Care Team Providers Care Metrologist Name Role Phone Unavailable Primary Care Provider Unavailabl e Source Comments [facility],non-owned Affiliates and Associated Physician Practices is amultiple site organization consisting of ambulatory clinics and hospital sitesin [place], [place], [place] and [place]. This disclosure is being madepursuant to the Care Everywhere program and may not contain all information available regarding this patient. 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
--- OUTSIDE RECORDS SUMMARY | 2025-03-10 12:54 | XMS_ITS | Clinical Summary ---
Author Organization 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 Gender Identity Not on file Sexual Orientation [...] - Td or Tdap) 01/03/2028, 06/25/2010 Insurance [facility] OPTIONS O [id number] * Guarantor: [employer] A THRU D (C) Account Type Relation to Patient Date of Phone Billing Address Corporate Employer ATTN: [employer] [address] [address] * Guarantor: [employer] Account Type Relation to Patient Date of Phone Billing Address Corporate Employer ATTN: [employer] [address] [address] Advance Directives For more information, please contact: [phone] * Full Code (Latest Code Status on File) Date Activated Date Inactivated Comments 01/24/2018 7:33 AM 01/24/2018 10:49 AM
--- OUTSIDE RECORDS SUMMARY | 2025-03-10 12:54 | XMS_ITS | Clinical Summary ---
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
== END 2025-03-10 14:01 | disposition home or self-care (01) ==
PROVIDERS: Emergency Provider Physician Assistant; PCP Family Medicine
DX: S39.012A Strain of muscle, fascia and tendon of lower back, initial encounter (principal); I10 Essential (primary) hypertension; K58.9 Irritable bowel syndrome, unspecified; F17.290 Nicotine dependence, other tobacco product, uncomplicated; Z87.01 Personal history of pneumonia (recurrent); X58.XXXA Exposure to other specified factors, initial encounter
CPT/HCPCS: 72128; 72131; 96372; 99284; A9270; J1885